=== PATIENT | female | born 2000 | race Caucasian/White ===

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

== ENCOUNTER 2025-01-21 05:32 | Inpatient (IN) ==
[2025-01-21] MEDS: MIDAZOLAM HCL 5 MG/ML 2ML VIAL STA (06:17)
--- NOTE | 2025-01-21 06:43 | Emergency Department Note ---
Impression & Plan UTI (urinary tract infection) Discharge ED Provider Note HPI: History obtained from patient's mother. The patient is a 25-year-old female with history of intermittent explosive disorder, developmental disorder, autism spectrum disorder, IgG deficiency, who presents to the emergency department with her mother over concern for left flank pain, fever/chills, and vomiting. Patient's mother states that her symptoms started yesterday evening. On arrival here to the ED the patient is febrile at 38.1 Celsius and tachycardic in the 160s, her blood pressure stable at 114/76 and she is saturating well on room air. On my examination the patient's heart rate is down trended into the 130s. Patient is anxious appearing but otherwise in no acute physical distress on my initial evaluation. Patient's mother at the bedside states that the patient has an extreme needle phobia and she has required sedation in the past with ketamine for IV placement. ROS: - Per HPI Differential Diagnosis: Sepsis, urinary tract infection, pyelonephritis, kidney stone, small bowel obstruction, acute cholecystitis, acute appendicitis, amongst other potential pathologies. *Outpatient medications and allergy history reviewed. PE: General: Alert, obese, no acute distress HEENT: Normocephalic, trachea midline Eyes: Extraocular eye movement is intact, no scleral erythema Pulmonary: Clear to auscultation bilaterally, no wheezing Cardio: Tachycardic rate with regular rhythm GI: Abdomen is soft to palpation, there is some mild left-sided abdominal tenderness and flank tenderness to palpation : No suprapubic tenderness MSK: No evidence of trauma or malformation of the extremities, no edema Skin: No evidence of rash Neuro: Alert, no focal deficits Psychiatric: Cooperative INDEPENDENT INTERPRETATIONS: monitor car operator: (As interpreted by myself): - An order was placed for continuous cardiac monitoring - Patient was noted to be in sinus rhythm with a rate of 136 EKG: (As interpreted by myself): Rate: 136 Rhythm: Sinus tachycardia Intervals: Within normal limits ST changes: No ST elevation Time: 0552 Chest x-ray: (As interpreted by myself): No acute findings Interventions provided in ED: - IV fluid bolus, IV cefepime, IM Haldol, IM Ativan, IV Tylenol, IV magnesium Medical Decision Making: Patient presented to the emergency department with vital signs and story concerning for possible sepsis. She is tachycardic on arrival and febrile. Patient required IM Haldol and IM Ativan for mild sedation so that IV could be placed. This was done successfully. Lab work was obtained and the patient was placed on computer hardware developer. Patient was given IV fluid resuscitation for sepsis as well as Tylenol. Lab work shows a leukocytosis of 18.3, hemoglobin is normal, platelet count is normal, CMP does not show any evidence of any critical findings. Magnesium is slightly low at 1.4, there is no acute kidney injury, there is a mild transaminitis with AST of 47 and ALT of 75, troponin is negative x 1, procalcitonin is mildly elevated at 1.39, testing is negative, urinalysis is consistent with infection. Blood cultures were drawn and the patient was treated with IV cefepime. Lactic acid was noted to be greater than 5, CT imaging of the abdomen pelvis was obtained with IV contrast that shows evidence of cystitis with left-sided pyelonephritis. On my reassessment the patient is more comfortable appearing, she appears well-perfused, her tachycardia is down trended into the 110s. Blood pressure is stable. I discussed all of the above findings with the patient's mother, she is in agreement for admission. Case was discussed with the on-call admitting midlevel provider for [facility] [place] and the patient was placed for admission to the service of Dr. Ross. Consultants/Discussions held with other healthcare providers: - Hospitalist, Dr. Ross Disposition discussion held by myself with: -Patient and mother * CRITICAL CARE TIME: ( 49 ) minutes - Stabilization of patient with sepsis secondary to urinary tract infection requiring IV fluid resuscitation with greater than 30 cc/kg, administration of broad-spectrum antibiotics, time spent at the bedside, interpretation of diagnostic studies, administration of anxiolytics for panic/anxiety associated with needle phobia, discussion with other healthcare providers and arrangement of admission. Diagnosis: 1. Pyelonephritis, acute, left-sided 2. Leukocytosis, acute 3. Lactic acidosis, acute 4. Urinary tract infection, acute 5. Hypomagnesemia, acute Disposition: Admission Parish Cartwright DO Emergency Medicine Past Med/Surg History Problem List (Updated 01/21/25 @ 12:21 by Parish Cartwright DO) UTI (urinary tract infection) (Acute) Sepsis Pyelonephritis Encounter for pre-operative examination Sinusitis (Acute) Normal physical examination (Acute) Hypersexuality state (Acute) Febrile illness (Acute) Cough (Acute) Agitation requiring sedation protocol (Acute) S/P tonsillectomy (Chronic) IgG deficiency (Chronic) Intermittent explosive disorder (Chronic) Sleep disorder (Chronic) Insulin resistance (Chronic) Anxiety (Chronic) Pervasive developmental disorder (Chronic) Upper respiratory infection (Acute) Medical History Pervasive developmental disorder Impaired gait Family history of reaction to anesthesia History of anesthesia reaction H/O bronchopulmonary dysplasia Sleep disorder Insulin resistance Seasonal allergies Anxiety Communication impairment Depression Autism Needle phobia Surgical History S/P tonsillectomy Social History Smoking Status: Never smoker Second Hand Exposure: No; Do You Dip or Chew Tobacco: No; Hx Alcohol Use: No Hx Substance Use: Yes (medical card) Last Used Substance Other:: nightly Preferred Language: American Communication Ability: Impaired Communication Ability Comment: needs to be present to communicate w/pt. Bed Bug Exterminator Required: No Beliefs That Will Affect Care: None Current Living Situation: Family Feels Safe at Home: Yes Assistive Devices: Glasses Allergies Allergies Allergy/AdvReac Type Severity Reaction Status Date / Time Penicillins Allergy Severe ANAPHYLAXIS Verified 01/21/25 08:52 Sulfa (Sulfonamide Allergy Severe ANAPHYLAXIS Verified 01/21/25 08:52 Antibiotics) adhesive tape Allergy Intermediate Hives Unverified 01/21/25 08:52 Home Meds Home Medications Medication Instructions Recorded Confirmed clonidine HCl 0.1 mg tablet 0.1 mg PO AMHS 06/15/20 01/21/25 lamotrigine 150 mg tablet 300 mg PO QAM 06/15/20 01/21/25 (Lamictal) metformin 500 mg tablet 500 mg PO HS 06/15/20 01/21/25 lorazepam 1 mg tablet 1 mg PO DIRECTED Anxiety 12/16/23 01/21/25 lumateperone 42 mg capsule 42 mg PO HS 12/16/23 01/21/25 (Caplyta) mirtazapine 7.5 mg tablet 7.5 mg PO HS PRN menstrual cycle 12/16/23 01/21/25 trazodone 150 mg tablet 150 mg PO HS 12/16/23 01/21/25 Medical Marijuana 1 dose PO HS 03/06/24 01/21/25 glipizide 5 mg tablet 5 mg PO DAILYBB 01/21/25 01/21/25 melatonin 10 mg chewable tablet 20 mg PO HS 01/21/25 01/21/25 naltrexone 50 mg tablet 25 mg PO QAM 01/21/25 01/21/25 nystatin 100,000 unit/gram topical 1 applic topical BID 01/21/25 01/21/25 cream Results & Data (ED) Vital Signs Vital Signs - 24 hr 01/21/25 05:36 01/21/25 05:43 01/21/25 06:22 Temperature 38.1 C H Temperature Source Temporal Artery Scan Pulse Rate 152 H 162 H Pulse Rate [Apical] Pulse Rhythm [Apical] Pulse Strength [Apical] Respiratory Rate 16 Respiratory Effort / Characteristics Respiratory Depth Normal Respiratory Pattern Blood Pressure 114/76 Blood Pressure [Right Arm] Blood Pressure Mean 88 Blood Pressure Mean [Right Arm] Pulse Oximetry 93 Oxygen Delivery Method Room Air Oxygen Flow Rate Sepsis Recent Fever Within 48 Hours Yes Sepsis New/Unexplained Change in Mental Status No Sepsis Action Taken by Nursing No Action Required 01/21/25 06:47 01/21/25 06:48 01/21/25 06:49 Temperature Temperature Source Pulse Rate 140 H Pulse Rate [Apical] Pulse Rhythm [Apical] Pulse Strength [Apical] Respiratory Rate 25 H Respiratory Effort / Characteristics Non-Labored Respiratory Depth Normal Respiratory Pattern Blood Pressure 112/80 Blood Pressure [Right Arm] Blood Pressure Mean 90 Blood Pressure Mean [Right Arm] Pulse Oximetry 98 97 Oxygen Delivery Method Room Air Room Air Oxygen Flow Rate Sepsis Recent Fever Within 48 Hours Sepsis New/Unexplained Change in Mental Status Sepsis Action Taken by Nursing 01/21/25 07:30 01/21/25 07:33 01/21/25 08:55 Temperature Temperature Source Pulse Rate Pulse Rate [Apical] 129 H 141 H 113 H Pulse Rhythm [Apical] Regular Regular Pulse Strength [Apical] Normal Normal Respiratory Rate 24 16 17 Respiratory Effort / Characteristics Non-Labored Spontaneous Non-Labored Spontaneous Respiratory Depth Normal Normal Respiratory Pattern Regular Regular Blood Pressure Blood Pressure [Right Arm] 121/75 121/75 98/64 L Blood Pressure Mean Blood Pressure Mean [Right Arm] 90 90 75 Pulse Oximetry 91 91 96 Oxygen Delivery Method Room Air Room Air Room Air Oxymask Oxygen Flow Rate 5 Sepsis Recent Fever Within 48 Hours Sepsis New/Unexplained Change in Mental Status Sepsis Action Taken by Nursing 01/21/25 09:00 Temperature Temperature Source Pulse Rate Pulse Rate [Apical] 105 H Pulse Rhythm [Apical] Pulse Strength [Apical] Respiratory Rate 18 Respiratory Effort / Characteristics Respiratory Depth Respiratory Pattern Blood Pressure Blood Pressure [Right Arm] 96/62 L Blood Pressure Mean Blood Pressure Mean [Right Arm] 73 Pulse Oximetry 95 Oxygen Delivery Method Oxymask Oxygen Flow Rate 5 Sepsis Recent Fever Within 48 Hours Sepsis New/Unexplained Change in Mental Status Sepsis Action Taken by Nursing Laboratory Data 01/21/25 07:05 01/21/25 07:05 Lab Results 01/21/25 01/21/25 01/21/25 Range/Units 06:05 07:05 08:20 WBC 18.30 H (4.8-10.8) K/ul RBC 5.05 (4.20-5.40) M/uL Hgb 14.4 (12.0-16.0) g/dl Hct 44.3 (37.0-47.0) % MCV 87.7 (80.0-100.0) fL MCH 28.5 (25.0-34.0) pg MCHC 32.5 (32.0-36.0) g/dL RDW Std Deviation 46.2 (36.4-46.3) fL RDW Coeff of Brandon 14.6 H (11.5-14.5) % Plt Count 316 (130-400) K/uL MPV 10.5 (9.4-12.4) fL Immature Gran % (Auto) 1.0 % Neut % (Auto) 83.6 % Lymph % (Auto) 7.8 % [place] % (Auto) 7.4 % Eos % (Auto) 0.0 % Baso % (Auto) 0.2 % Neut # (Auto) 15.31 H (1.40-6.50) K/uL Lymph # (Auto) 1.42 (1.20-3.40) K/uL [place] # (Auto) 1.35 H (0.11-0.59) K/uL Eos # (Auto) 0.00 (0.00-0.50) K/uL Baso # (Auto) 0.04 (0.00-0.20) K/uL Immature Gran # (Auto) 0.18 (0.01-0.20) K/uL Sodium 139 (136-145) mmol/L Potassium 4.7 (3.5-5.1) mmol/L Chloride 102 (98-107) mmol/L Carbon Dioxide 25 (21-32) mmol/L Anion Gap 12 H (3-11) BUN 7 (6-23) mg/dl Creatinine 0.72 (0.6-1.2) mg/dl Est Cr Clr Drug Dosing 121.5 ml/min eGFR 119.66 BUN/Creatinine Ratio 9.7 L (10-20) Glucose 278 H (70-99(Fasting)) mg/dl Lactate 5.4 H* (0.4-2.0) mmol/L Calcium 9.7 (8.6-10.3) mg/dl Magnesium 1.4 L (1.7-2.4) mg/dl Total Bilirubin 1.2 H (0.2-1.0) mg/dl Direct Bilirubin 0.4 H (0-0.2) mg/dl AST 47 H (13-39) U/L ALT 75 H (7-52) U/L Alkaline Phosphatase 96 (34-104) U/L Troponin I High Sens 8.2 (0-14) pg/ml Total Protein 7.3 (6.0-8.3) gm/dl Albumin 4.4 (3.4-5.0) gm/dl Lipase 17 (11-82) U/L Procalcitonin 1.39 H (0-0.5) ng/ml HCG, Qual Negative (Negative) Urine Color Dark Yellow Urine Appearance Cloudy A (Clear) Urine pH 5.5 (4.5-7.5) Ur Specific [place] 1.041 H (1.000-1.030) Urine Protein 3+ H (Negative) Urine Glucose (UA) 1+ H (Negative) Urine Ketones 1+ H (Negative) Urine Blood 2+ H (Negative) Urine Nitrite Positive A (Negative) Urine Bilirubin Negative (Negative) Urine Urobilinogen Negative (Negative) Ur Leukocyte Esterase 2+ H (Negative) Urine WBC (Auto) >50 H (0-5) /hpf Urine RBC (Auto) 11-20 H (0-2) /hpf U Hyaline Cast (Auto) 0-2 (0-2) /lpf U Epithel Cells (Auto) 0-2 (0-2) /hpf Urine Bacteria (Auto) 4+ H (None Seen) Urine Comment Adenovirus (PCR) Not Detected (NotDetected) B. pertussis DNA (PCR) Not Detected (NotDetected) B.parapertussis DNA PCR Not Detected (NotDetected) C. pneumoniae DNA (PCR) Not Detected (NotDetected) Coronavirus OC43 (PCR) Not Detected (NotDetected) Coronavirus HKU1 (PCR) Not Detected (NotDetected) Coronavirus 229E (PCR) Not Detected (NotDetected) SARS-CoV-2 (PCR) Not Detected (NotDetected) Coronavirus NL63 (PCR) Not Detected (NotDetected) Human Metapneumovir PCR Not Detected (NotDetected) Influenza Type A (PCR) Not Detected (NotDetected) Influenza Type B (PCR) Not Detected (NotDetected) M. pneumoniae (PCR) Not Detected (NotDetected) Parainfluenza 1 (PCR) Not Detected (NotDetected) Parainfluenza 2 (PCR) Not Detected (NotDetected) Parainfluenza 3 (PCR) Not Detected (NotDetected) Parainfluenza 4 (PCR) Not Detected (NotDetected) RSV (PCR) Not Detected (NotDetected) Entero/Rhino (PCR) Not Detected (NotDetected) 01/21/25 Range/Units 08:59 WBC (4.8-10.8) K/ul RBC (4.20-5.40) M/uL Hgb (12.0-16.0) g/dl Hct (37.0-47.0) % MCV (80.0-100.0) fL MCH (25.0-34.0) pg MCHC (32.0-36.0) g/dL RDW Std Deviation (36.4-46.3) fL RDW Coeff of [place] (11.5-14.5) % Plt Count (130-400) K/uL MPV (9.4-12.4) fL Immature Gran % (Auto) % Neut % (Auto) % Lymph % (Auto) % [place] % (Auto) % Eos % (Auto) % Baso % (Auto) % Neut # (Auto) (1.40-6.50) K/uL Lymph # (Auto) (1.20-3.40) K/uL [place] # (Auto) (0.11-0.59) K/uL Eos # (Auto) (0.00-0.50) K/uL Baso # (Auto) (0.00-0.20) K/uL Immature Gran # (Auto) (0.01-0.20) K/uL Sodium (136-145) mmol/L Potassium (3.5-5.1) mmol/L Chloride (98-107) mmol/L Carbon Dioxide (21-32) mmol/L Anion Gap (3-11) BUN (6-23) mg/dl Creatinine (0.6-1.2) mg/dl Est Cr Clr Drug Dosing ml/min eGFR BUN/Creatinine Ratio (10-20) Glucose (70-99(Fasting)) mg/dl Lactate 2.8 H* (0.4-2.0) mmol/L Calcium (8.6-10.3) mg/dl Magnesium (1.7-2.4) mg/dl Total Bilirubin (0.2-1.0) mg/dl Direct Bilirubin (0-0.2) mg/dl AST (13-39) U/L ALT (7-52) U/L Alkaline Phosphatase (34-104) U/L Troponin I High Sens (0-14) pg/ml Total Protein (6.0-8.3) gm/dl Albumin (3.4-5.0) gm/dl Lipase (11-82) U/L Procalcitonin (0-0.5) ng/ml HCG, Qual (Negative) Urine Color Urine Appearance (Clear) Urine pH (4.5-7.5) Ur Specific [place] (1.000-1.030) Urine Protein (Negative) Urine Glucose (UA) (Negative) Urine Ketones (Negative) Urine Blood (Negative) Urine Nitrite (Negative) Urine Bilirubin (Negative) Urine Urobilinogen (Negative) Ur Leukocyte Esterase (Negative) Urine WBC (Auto) (0-5) /hpf Urine RBC (Auto) (0-2) /hpf U Hyaline Cast (Auto) (0-2) /lpf U Epithel Cells (Auto) (0-2) /hpf Urine Bacteria (Auto) (None Seen) Urine Comment Adenovirus (PCR) (NotDetected) B. pertussis DNA (PCR) (NotDetected) B.parapertussis DNA PCR (NotDetected) C. pneumoniae DNA (PCR) (NotDetected) Coronavirus OC43 (PCR) (NotDetected) Coronavirus HKU1 (PCR) (NotDetected) Coronavirus 229E (PCR) (NotDetected) SARS-CoV-2 (PCR) (NotDetected) Coronavirus NL63 (PCR) (NotDetected) Human Metapneumovir PCR (NotDetected) Influenza Type A (PCR) (NotDetected) Influenza Type B (PCR) (NotDetected) M. pneumoniae (PCR) (NotDetected) Parainfluenza 1 (PCR) (NotDetected) Parainfluenza 2 (PCR) (NotDetected) Parainfluenza 3 (PCR) (NotDetected) Parainfluenza 4 (PCR) (NotDetected) RSV (PCR) (NotDetected) Entero/Rhino (PCR) (NotDetected) Administered Medications Lactated Ringer's (Lr) 1,000 mls @ 80 mls/hr IV .[id number] CECY Stop: 01/24/25 10:14 Last Admin: 01/21/25 10:37 Dose: 80 mls/hr Documented By: AMANDA Discontinued Medications Haloperidol Lactate (Haloperidol Lactate 5 Mg/Ml 1 Ml Vial) 10 mg IV NOW STA Stop: 01/21/25 06:40 Last Admin: 01/21/25 06:45 Dose: 10 mg Documented By: [facility] Sodium Chloride (Nss) 1,000 mls @ 999 mls/hr IV .Q1H1M CECY Stop: 01/21/25 07:45 Last Infusion: 01/21/25 10:34 Dose: 0 mls/hr Documented By: Admin: 01/21/25 09:59 Dose: 999 mls/hr Documented By: Infusion: 01/21/25 08:28 Dose: Infused Documented By: Admin: 01/21/25 07:07 Dose: 999 mls/hr Documented By: NANCY Acetaminophen (Ofirmev) 1,000 mg in 100 mls @ 400 mls/hr IV NOW STA Stop: 01/21/25 05:58 Last Infusion: 01/21/25 07:38 Dose: Infused Documented By: Admin: 01/21/25 07:14 Dose: 400 mls/hr Documented By: AMANDA Cefepime HCl (Maxipime 2000mg) 2,000 mg in 20 mls @ 5 mls/min IV NOW STA; Protocol Stop: 01/21/25 07:31 Last Admin: 01/21/25 07:48 Dose: 5 mls/min Documented By: AMANDA Sodium Chloride (Nss) 1,000 mls @ 999 mls/hr IV .Q1H1M ONE Stop: 01/21/25 08:28 Last Infusion: 01/21/25 09:54 Dose: Infused Documented By: Admin: 01/21/25 08:07 Dose: 999 mls/hr Documented By: AMANDA Magnesium Sulfate/Dextrose (Magnesium Sulfate / D5w) 1 gm in 100 mls @ 100 mls/hr IV NOW STA Stop: 01/21/25 08:58 Last Infusion: 01/21/25 09:54 Dose: Infused Documented By: Admin: 01/21/25 08:29 Dose: 100 mls/hr Documented By: AMANDA Ioversol (Optiray 320 100ml) 94 ml IV ONCE ONE Stop: 01/21/25 07:58 Last Admin: 01/21/25 07:57 Dose: 94 ml Documented By: MADISON Lorazepam (Lorazepam 2 Mg/1 Ml Vial) 2 mg IM NOW STA Stop: 01/21/25 06:40 Last Admin: 01/21/25 06:45 Dose: 2 mg Documented By: LORRAINE Midazolam HCl (Midazolam Hcl 5 Mg/Ml 2ml Vial) 4 mg NA NOW STA Stop: 01/21/25 06:08 Last Admin: 01/21/25 06:17 Dose: 4 mg Documented By: NANCY Ondansetron HCl (Ondansetron Inj 2 Mg/Ml 2 Ml Vial) 4 mg IV NOW STA Stop: 01/21/25 05:45 Last Admin: 01/21/25 07:15 Dose: 4 mg Documented By: AMANDA Imaging Data Radiologist's Impression: Chest X-Ray 01/21/25 05:42 EXAM: XR chest 1V portable CLINICAL HISTORY: Sepsis TECHNIQUE: An X-ray image of the chest is obtained in AP projection. COMPARISON: 06/28/2020 FINDINGS: Pulmonary Parenchyma: Lungs are clear bilaterally. No evidence of consolidation, collapse, or focal opacities. No pulmonary nodules are identified. No evidence of pleural effusion or pleural thickening. Heart and Mediastinum: Heart size and shape are normal. No mediastinal widening or masses. No hilar or mediastinal lymphadenopathy. Bony Thorax: Bony thorax appears intact without fractures or deformities. Soft Tissues: Soft tissues overlying the chest wall are unremarkable. IMPRESSION: 1. No acute cardiopulmonary abnormalities are identified. 2. No significant interval changes. Electronically signed by Paul Pace 01-21-2025 06:58 AM KUB X-Ray 01/21/25 05:46 EXAM: XR KUB/Abdomen 1 view CLINICAL HISTORY: fever, n/v TECHNIQUE: X-ray images of the abdomen were obtained in frontal positions. COMPARISON: CT study dated 06/17/2017 reviewed FINDINGS: Gas Pattern: Scattered gas distended bowel loops, non-specific pattern No evidence of bowel obstruction. Soft Tissues: Soft tissues of the abdomen appear normal without evidence of masses or calcifications. Liver, spleen, and kidneys are of normal size and position. IMPRESSION: 1. Scattered gas distended bowel loops, non-specific pattern 2. No evidence of bowel obstruction. Electronically signed by Paul Pace 01-21-2025 07:00 AM Abdomen/Pelvis CT 01/21/25 07:[address] WITH IV CONTRAST CT DOSE: 1597.56 mGy.cm HISTORY: Acute left-sided flank pain L flank pain, vomiting TECHNIQUE: Multiaxial CT images of the abdomen and pelvis were performed following the IV administration of 94 cc of Optiray, A dose lowering technique was utilized adhering to the principles of ALARA. COMPARISON STUDY: 06/17/2017 FINDINGS: Cystic changes in the lung bases redemonstrated. No pneumatosis or pneumoperitoneum. The spleen is enlarged measuring 14 cm. Hepatic steatosis. The liver measures 23 cm in length. Patency of the hepatic and portal veins. Unremarkable pancreas and adrenal glands. Unremarkable right kidney. There is asymmetric left-sided perinephric stranding with areas of heterogeneous left renal enhancement and urothelial thickening. No urolithiasis or hydronephrosis. Mild urinary bladder wall thickening with partial distention. Unremarkable uterus. Bilateral ovarian follicles with 3 cm right ovarian cyst. Aorta and IVC are unremarkable. No bowel obstruction or bowel wall thickening. Normal appendix. Unremarkable osseous structures. IMPRESSION: 1. Findings suggestive of cystitis with ascending left-sided infection and left- sided pyelonephritis. 2. No urolithiasis or hydronephrosis. 3. Hepatosplenomegaly with hepatic steatosis. 4. 3 cm right ovarian cyst. 5. Cystic pulmonary disease versus emphysema redemonstrated. ACT 112: Negative or not required by law. The above report was generated using voice recognition software. It may contain grammatical, syntax or spelling errors. Electronically signed by: Leo Amezcua M.D. 01/21/2025 8:18 AM Discharge Plan Visit Data Chief Complaint: Vomiting Stated Complaint: FEVER, VOMIT ED Provider: Parish Cartwright Discharge Problem: UTI (urinary tract infection) Patient Disposition: Admitted As Inpatient Condition: Fair Discharge Instructions Interventions: ED Discharge Assessment Last Done: 01/21/25 11:40
[2025-01-21] MEDS: HALOPERIDOL LACTATE 5 MG/ML 1 ML VIAL IV STA (06:45)
--- NOTE | 2025-01-21 06:59 | XRay Report ---
EXAM: XR chest 1V portable CLINICAL HISTORY: Sepsis TECHNIQUE: An X-ray image of the chest is obtained in AP projection. COMPARISON: 06/28/2020 FINDINGS: Pulmonary Parenchyma: Lungs are clear bilaterally. No evidence of consolidation, collapse, or focal opacities. No pulmonary nodules are identified. No evidence of pleural effusion or pleural thickening. Heart and Mediastinum: Heart size and shape are normal. No mediastinal widening or masses. No hilar or mediastinal lymphadenopathy. Bony Thorax: Bony thorax appears intact without fractures or deformities. Soft Tissues: Soft tissues overlying the chest wall are unremarkable. IMPRESSION: 1. No acute cardiopulmonary abnormalities are identified. 2. No significant interval changes. Electronically signed by Paul Pace 01-21-2025 06:58 AM
--- NOTE | 2025-01-21 07:02 | XRay Report ---
EXAM: XR KUB/Abdomen 1 view CLINICAL HISTORY: fever, n/v TECHNIQUE: X-ray images of the abdomen were obtained in frontal positions. COMPARISON: CT study dated 06/17/2017 reviewed FINDINGS: Gas Pattern: Scattered gas distended bowel loops, non-specific pattern No evidence of bowel obstruction. Soft Tissues: Soft tissues of the abdomen appear normal without evidence of masses or calcifications. Liver, spleen, and kidneys are of normal size and position. IMPRESSION: 1. Scattered gas distended bowel loops, non-specific pattern 2. No evidence of bowel obstruction. Electronically signed by Paul Pace 01-21-2025 07:00 AM
[2025-01-21 07:06] LABS: Chlamydia pneumoniae PCR Not Detected (NotDetected); Coronavirus 229E PCR Not Detected (NotDetected); Coronavirus CoV-2 (COVID19)PCR Not Detected (NotDetected); Coronavirus HKU1 PCR Not Detected (NotDetected); Coronavirus NL63 PCR Not Detected (NotDetected); Coronavirus OC43PCR Not Detected (NotDetected); Human Metapneumovirus PCR Not Detected (NotDetected); Parainfluenza Virus 1 PCR Not Detected (NotDetected); Parainfluenza Virus 2 PCR Not Detected (NotDetected); Parainfluenza Virus 3 PCR Not Detected (NotDetected); Parainfluenza Virus 4 PCR Not Detected (NotDetected); Respiratory Syncytial VirusPCR Not Detected (NotDetected); Rhinovirus/Enterovirus PCR Not Detected (NotDetected)
[2025-01-21] MEDS: SODIUM CHLORIDE 0.9% 1,000 ML IV SCH (07:07)
[2025-01-21] MEDS: ACETAMINOPHEN 1,000 MG/100 ML VIAL IV STA (07:14)
[2025-01-21] MEDS: ONDANSETRON INJ 2 MG/ML 2 ML VIAL IV STA (07:15)
[2025-01-21 07:21] LABS: Hematocrit (blood only) 44.3 % (37.0-47.0); Hemoglobin 14.4 g/dl (12.0-16.0); Immature Granulocytes # (auto) 0.18 K/uL (0.01-0.20); Immature Granulocytes % (auto) 1.0 %; Mean Corpuscular Hemoglobin 28.5 pg (25.0-34.0); Mean Corpuscular Volume 87.7 fL (80.0-100.0); Platelet Count 316 K/uL (130-400); RDW Standard Deviation 46.2 fL (36.4-46.3); Red Blood Count 5.05 M/uL (4.20-5.40); White Blood Count 18.30 K/ul (4.8-10.8)
[2025-01-21 07:38] LABS: Alanine Aminotransferase 75.0 U/L (7-52); Alkaline Phosphatase 96.0 U/L (34-104); Anion Gap 12.0 (3-11); Bilirubin,Total 1.2 mg/dl (0.2-1.0); Blood Urea Nitrogen 7.0 mg/dl (6-23); Calcium 9.7 mg/dl (8.6-10.3); Carbon Dioxide 25.0 mmol/L (21-32); Chloride 102.0 mmol/L (98-107); Creatinine Clr Calc Pharmacy 121.5 ml/min; Glucose 278.0 mg/dl (70-99(Fasting)); Lipase 17.0 U/L (11-82); Magnesium 1.4 mg/dl (1.7-2.4); Potassium 4.7 mmol/L (3.5-5.1); Sodium 139.0 mmol/L (136-145); Total Protein 7.3 gm/dl (6.0-8.3)
[2025-01-21] MEDS: CEFEPIME 2000MG 2,000 MG/20 ML SYR IV STA (07:48)
[2025-01-21 07:56] LABS: Pregnancy Test, Serum Negative (Negative)
[2025-01-21] MEDS: OPTIRAY 320 100ml IV ONE (07:57)
[2025-01-21] MEDS: SODIUM CHLORIDE 0.9% 1,000 ML IV ONE (08:07)
--- NOTE | 2025-01-21 08:19 | CT Scan Report ---
ABDOMEN AND PELVIS CT WITH IV CONTRAST CT DOSE: 1597.56 mGy.cm HISTORY: Acute left-sided flank pain L flank pain, vomiting TECHNIQUE: Multiaxial CT images of the abdomen and pelvis were performed following the IV administrat ion of 94 cc of Optiray, A dose lowering technique was utilized adhering to the principles of ALARA. COMPARISON STUDY: 06/17/2017 FINDINGS: Cystic changes in the lung bases redemonstrated. No pneumatosis or pneumoperitoneum. The sp michelle is enlarged measuring 14 cm. Hepatic steatosis. The liver measures 23 cm in length. Patency of t he hepatic and portal veins. Unremarkable pancreas and adrenal glands. Unremarkable right kidney. There is asymmetric left-sided perinephric stranding with areas of heterog eneous left renal enhancement and urothelial thickening. No urolithiasis or hydronephrosis. Mild urin cristino bladder wall thickening with partial distention. Unremarkable uterus. Bilateral ovarian follicles with 3 cm right ovarian cyst. Aorta and IVC are unremarkable. No bowel obstruction or bowel wall thi ckening. Normal appendix. Unremarkable osseous structures. IMPRESSION: 1. Findings suggestive of cystitis with ascending left-sided infection and left-sided pyelonephritis. 2. No urolithiasis or hydronephrosis. 3. Hepatosplenomegaly with hepatic steatosis. 4. 3 cm right ovarian cyst. 5. Cystic pulmonary disease versus emphysema redemonstrated. ACT 112: Negative or not required by law. The above report was generated using voice recognition software. It may contain grammatical, syntax o r spelling errors. Electronically signed by: Leo Amezcua M.D. 01/21/2025 8:18 AM
[2025-01-21] MEDS: MAGNESIUM SULFATE / D5W 1 GM/100 ML BAG IV STA (08:29)
[2025-01-21 08:43] LABS: Appearance Urine Cloudy (Clear); Bacteria Urine Automated 4+ (None Seen); Cast Urine Automated 0-2 /lpf (0-2); Epithelial Cell Urine Auto 0-2 /hpf (0-2); Glucose Urine UA 1+ (Negative); WBC Urine Automated >50 /hpf (0-5)
[2025-01-21] MEDS ORDERED: GLUCOSE 10 TAB/TUBE PO PRN (09:16)
[2025-01-21] MEDS ORDERED: DEXTROSE 50% 50 ML SYRINGE IV PRN (09:16)
[2025-01-21] MEDS ORDERED: GLUCOSE 40% GEL 15 GM TUBE PO PRN (09:16)
[2025-01-21] MEDS ORDERED: GLUCAGON FOR INJ 1 MG VIAL SQ PRN (09:16)
[2025-01-21] MEDS ORDERED: CARBOHYDRATES FOR HYPOGLYCEMIA PO PRN (09:16)
--- NOTE | 2025-01-21 10:10 | History & Physical Report ---
Date of Service January 21, 2025 Assessment & Plan (1) Intermittent explosive disorder: (2) Sleep disorder: (3) Anxiety: (4) Depression: (5) Autism: (6) Pyelonephritis: (7) Sepsis: Plan The patient is a 25-year-old female with a history of autism who presents to the ED on 01/21/2025 with complaints of nausea/vomiting/fever/chills x 24 hours found to have pyelonephritis and sepsis Sepsis Pyelonephritis Leukocytosis, fever, tachycardia, lactic acidosis and positive urinalysis all consistent with sepsis Tachycardia improved with IV fluids, continue to trend lactic acid, blood cultures and urine cultures pending Continue IV cefepime, history of penicillin allergy, has tolerated cefepime in the past, continue IV fluids CT A/P with left-sided pyelonephritis, no evidence of obstructing kidney stone Acute hypoxia: On 5 L currently, received Haldol and Ativan in ER for agitation No increased work of breathing, likely will resolve once sedation wears off Chest x-ray was negative Hx autism/explosive disorder/anxiety: Continue home meds including clonidine, Lamictal, lorazepam, naltrexone, trazodone Hx DM2: Hold glipizide/metformin, SSI/4 times daily BGM Patient has a needle phobia, may need to slowly reintroduce oral agents if not tolerant of insulin Recheck A1c A total of 60 minutes was spent on chart review/reviewing diagnostic data/facilitating plan of care/discussion with consultants Full code DVT prophylaxis: SCDs History of Present Illness Chief Complaint: Flank pain, chills Primary Care Provider: Hui Robert MD The patient is a 25-year-old female with a past medical history of explosive disorder, developmental disorder, autism spectrum disorder level 3, IgG deficiency, DM2, anxiety who presents to the ED on 01/21/2025 after she was broug ht in from home with her mother for concern of left flank pain, vomiting, and chills at home x 24 hours. The patient's mother is at bedside and reports that her symptoms started last night. The patient began complaining of pain and she believed this was originally from gas. After the pain did not improve, the patient had chills overnight and had about 5 episodes of vomiting this morning. She was brought to the ER after this. When the patient arrived to the ED, the patient was febrile at 38.1 with elevated heart rates in the 160s. Her blood pressure remained stable. On exam, the patient had received Versed and Haldol, she is sedated but arousable. At this time, requiring 5 L of oxygen due to sedation. Blood pressures were slightly low in the 90s. But heart rate has now improved in the 80s. The patient does not appear in any apparent distress. Labs are remarkable for WBC 18, anion gap 12, glucose 278, magnesium 1.4, total bili 1.2, AST 47, ALT 75, procalcitonin 1.39, lactic acid 5.4 Urinalysis grossly positive Respiratory viral panel negative Chest x-ray negative KUB showed scattered gas distended bowel loops with no evidence of bowel obstruction Abdomen/pelvis CT showed: 1. Findings suggestive of cystitis with ascending left-sided infection and left- sided pyelonephritis. 2. No urolithiasis or hydronephrosis. 3. Hepatosplenomegaly with hepatic steatosis. 4. 3 cm right ovarian cyst. 5. Cystic pulmonary disease versus emphysema redemonstrated. The patient received IV cefepime and IV fluids in the ER. She will be admitted for urosepsis Allergies Allergy/AdvReac Type Severity Reaction Status Date / Time Penicillins Allergy Severe ANAPHYLAXIS Verified 01/21/25 08:52 Sulfa (Sulfonamide Allergy Severe ANAPHYLAXIS Verified 01/21/25 08:52 Antibiotics) adhesive tape Allergy Intermediate Hives Unverified 01/21/25 08:52 Home Medications Medication Instructions Recorded Confirmed Type clonidine HCl 0.1 mg tablet 0.1 mg PO AMHS 06/15/20 01/21/25 History lamotrigine 150 mg tablet 300 mg PO QAM 06/15/20 01/21/25 History (Lamictal) metformin 500 mg tablet 500 mg PO HS 06/15/20 01/21/25 History lorazepam 1 mg tablet 1 mg PO DIRECTED Anxiety 12/16/23 01/21/25 History lumateperone 42 mg capsule 42 mg PO HS 12/16/23 01/21/25 History (Caplyta) mirtazapine 7.5 mg tablet 7.5 mg PO HS PRN menstrual cycle 12/16/23 01/21/25 History trazodone 150 mg tablet 150 mg PO HS 12/16/23 01/21/25 History Medical Marijuana 1 dose PO HS 03/06/24 01/21/25 History glipizide 5 mg tablet 5 mg PO DAILYBB 01/21/25 01/21/25 History melatonin 10 mg chewable tablet 20 mg PO HS 01/21/25 01/21/25 History naltrexone 50 mg tablet 25 mg PO QAM 01/21/25 01/21/25 History nystatin 100,000 unit/gram topical 1 applic topical BID 01/21/25 01/21/25 History cream Past Med/Surg History Problem List (Updated 01/21/25 @ 12:21 by Parish Cartwright, DO) UTI (urinary tract infection) (Acute) Sepsis Pyelonephritis Encounter for pre-operative examination Sinusitis (Acute) Normal physical examination (Acute) Hypersexuality state (Acute) Febrile illness (Acute) Cough (Acute) Agitation requiring sedation protocol (Acute) S/P tonsillectomy (Chronic) IgG deficiency (Chronic) Intermittent explosive disorder (Chronic) Sleep disorder (Chronic) Insulin resistance (Chronic) Anxiety (Chronic) Pervasive developmental disorder (Chronic) Upper respiratory infection (Acute) Medical History Pervasive developmental disorder Impaired gait Family history of reaction to anesthesia History of anesthesia reaction H/O bronchopulmonary dysplasia Sleep disorder Insulin resistance Seasonal allergies Anxiety Communication impairment Depression Autism Needle phobia Surgical History S/P tonsillectomy Social History Smoking Status: Never smoker Second Hand Exposure: No; Do You Dip or Chew Tobacco: No; Hx Alcohol Use: No Hx Substance Use: Yes (medical card) Last Used Substance Other:: nightly Preferred Language: Armenian Communication Ability: Impaired Communication Ability Comment: needs to be present to communicate w/pt. Director Translational Required: No Beliefs That Will Affect Care: None Current Living Situation: Family Feels Safe at Home: Yes Assistive Devices: Glasses Review of Systems Review of Systems: All systems reviewed & are unremarkable except as noted in HPI & below Physical Exam Constitutional: WD/WN, vitals as above not in distress Eyes: PERRL, conjunctivae normal, anicteric sclerae ENMT: external ear and nose normal, oropharynx normal Neck: trachea midline, no thyromegaly Respiratory: normal respiratory effort, lungs clear to auscultation Cardiovascular: RRR, no murmur, no edema Gastrointestinal (Abdomen): normal bowel sounds, soft, nontender, no hepatosplenomegaly (Left-sided abdominal tenderness, no guarding) Musculoskeletal: no cyanosis or clubbing, extremities motor strength 5/5 Skin: no rashes, warm and dry Neurologic: PERRL, EOMI, accommodation nl, no face palsy, no dysarthria Lymphatic: no cervical or axillary lymphadenopathy Results & Data Results & Data Vital Signs (Past 12 Hours) Vital Signs Temp Pulse Pulse Resp BP BP Pulse Ox 01/21/25 09:00 105 H 18 96/62 L 95 01/21/25 08:55 113 H 17 98/64 L 96 01/21/25 07:33 141 H 16 121/75 91 01/21/25 07:30 129 H 24 121/75 91 01/21/25 06:49 97 01/21/25 06:47 140 H 25 H 112/80 98 01/21/25 06:22 162 H 01/21/25 05:36 38.1 C H 152 H 16 114/76 93 O2 Del Method O2 Flow Rate 01/21/25 09:00 Oxymask 5 01/21/25 08:55 Room Air, Oxymask 5 01/21/25 07:33 Room Air 01/21/25 07:30 Room Air 01/21/25 06:49 Room Air 01/21/25 06:47 Room Air 01/21/25 06:22 01/21/25 05:36 Room Air Diagnostic Findings Laboratory Results WBC 18.30 K/ul (4.8-10.8) H 01/21/25 07:05 RBC 5.05 M/uL (4.20-5.40) 01/21/25 07:05 Hgb 14.4 g/dl (12.0-16.0) 01/21/25 07:05 Hct 44.3 % (37.0-47.0) 01/21/25 07:05 MCV 87.7 fL (80.0-100.0) 01/21/25 07:05 MCH 28.5 pg (25.0-34.0) 01/21/25 07:05 MCHC 32.5 g/dL (32.0-36.0) 01/21/25 07:05 RDW Std Deviation 46.2 fL (36.4-46.3) 01/21/25 07:05 RDW Coeff of [place] 14.6 % (11.5-14.5) H 01/21/25 07:05 Plt Count 316 K/uL (130-400) 01/21/25 07:05 MPV 10.5 fL (9.4-12.4) 01/21/25 07:05 Immature Gran % (Auto) 1.0 % 01/21/25 07:05 Neut % (Auto) 83.6 % 01/21/25 07:05 Lymph % (Auto) 7.8 % 01/21/25 07:05 [place] % (Auto) 7.4 % 01/21/25 07:05 Eos % (Auto) 0.0 % 01/21/25 07:05 Baso % (Auto) 0.2 % 01/21/25 07:05 Neut # (Auto) 15.31 K/uL (1.40-6.50) H 01/21/25 07:05 Lymph # (Auto) 1.42 K/uL (1.20-3.40) 01/21/25 07:05 [place] # (Auto) 1.35 K/uL (0.11-0.59) H 01/21/25 07:05 Eos # (Auto) 0.00 K/uL (0.00-0.50) 01/21/25 07:05 Baso # (Auto) 0.04 K/uL (0.00-0.20) 01/21/25 07:05 Immature Gran # (Auto) 0.18 K/uL (0.01-0.20) 01/21/25 07:05 Sodium 139 mmol/L (136-145) 01/21/25 07:05 Potassium 4.7 mmol/L (3.5-5.1) 01/21/25 07:05 Chloride 102 mmol/L (98-107) 01/21/25 07:05 Carbon Dioxide 25 mmol/L (21-32) 01/21/25 07:05 Anion Gap 12 (3-11) H 01/21/25 07:05 BUN 7 mg/dl (6-23) 01/21/25 07:05 Creatinine 0.72 mg/dl (0.6-1.2) 01/21/25 07:05 Est Cr Clr Drug Dosing 121.5 ml/min 01/21/25 07:05 eGFR 119.66 01/21/25 07:05 BUN/Creatinine Ratio 9.7 (10-20) L 01/21/25 07:05 Glucose 278 mg/dl (70-99(Fasting)) H 01/21/25 07:05 POC Glucose 272 mg/dl (70-99) H 01/21/25 10:03 Lactate 5.4 mmol/L (0.4-2.0) H* 01/21/25 07:05 Calcium 9.7 mg/dl (8.6-10.3) 01/21/25 07:05 Magnesium 1.4 mg/dl (1.7-2.4) L 01/21/25 07:05 Total Bilirubin 1.2 mg/dl (0.2-1.0) H 01/21/25 07:05 Direct Bilirubin 0.4 mg/dl (0-0.2) H 01/21/25 07:05 AST 47 U/L (13-39) H 01/21/25 07:05 ALT 75 U/L (7-52) H 01/21/25 07:05 Alkaline Phosphatase 96 U/L (34-104) 01/21/25 07:05 Troponin I High Sens 8.2 pg/ml (0-14) 01/21/25 07:05 Total Protein 7.3 gm/dl (6.0-8.3) 01/21/25 07:05 Albumin 4.4 gm/dl (3.4-5.0) 01/21/25 07:05 Lipase 17 U/L (11-82) 01/21/25 07:05 Procalcitonin 1.39 ng/ml (0-0.5) H 01/21/25 07:05 HCG, Qual Negative (Negative) 01/21/25 07:05 Urine Color Dark Yellow 01/21/25 08:20 Urine Appearance Cloudy (Clear) A 01/21/25 08:20 Urine pH 5.5 (4.5-7.5) 01/21/25 08:20 Ur Specific [place] 1.041 (1.000-1.030) H 01/21/25 08:20 Urine Protein 3+ (Negative) H 01/21/25 08:20 Urine Glucose (UA) 1+ (Negative) H 01/21/25 08:20 Urine Ketones 1+ (Negative) H 01/21/25 08:20 Urine Blood 2+ (Negative) H 01/21/25 08:20 Urine Nitrite Positive (Negative) A 01/21/25 08:20 Urine Bilirubin Negative (Negative) 01/21/25 08:20 Urine Urobilinogen Negative (Negative) 01/21/25 08:20 Ur Leukocyte Esterase 2+ (Negative) H 01/21/25 08:20 Urine WBC (Auto) >50 /hpf (0-5) H 01/21/25 08:20 Urine RBC (Auto) 11-20 /hpf (0-2) H 01/21/25 08:20 U Hyaline Cast (Auto) 0-2 /lpf (0-2) 01/21/25 08:20 U Epithel Cells (Auto) 0-2 /hpf (0-2) 01/21/25 08:20 Urine Bacteria (Auto) 4+ (None Seen) H 01/21/25 08:20 Urine Comment 01/21/25 08:20 Adenovirus (PCR) Not Detected (NotDetected) 01/21/25 06:05 B. pertussis DNA (PCR) Not Detected (NotDetected) 01/21/25 06:05 B.parapertussis DNA PCR Not Detected (NotDetected) 01/21/25 06:05 C. pneumoniae DNA (PCR) Not Detected (NotDetected) 01/21/25 06:05 Coronavirus OC43 (PCR) Not Detected (NotDetected) 01/21/25 06:05 Coronavirus HKU1 (PCR) Not Detected (NotDetected) 01/21/25 06:05 Coronavirus 229E (PCR) Not Detected (NotDetected) 01/21/25 06:05 SARS-CoV-2 (PCR) Not Detected (NotDetected) 01/21/25 06:05 Coronavirus NL63 (PCR) Not Detected (NotDetected) 01/21/25 06:05 Human Metapneumovir PCR Not Detected (NotDetected) 01/21/25 06:05 Influenza Type A (PCR) Not Detected (NotDetected) 01/21/25 06:05 Influenza Type B (PCR) Not Detected (NotDetected) 01/21/25 06:05 M. pneumoniae (PCR) Not Detected (NotDetected) 01/21/25 06:05 Parainfluenza 1 (PCR) Not Detected (NotDetected) 01/21/25 06:05 Parainfluenza 2 (PCR) Not Detected (NotDetected) 01/21/25 06:05 Parainfluenza 3 (PCR) Not Detected (NotDetected) 01/21/25 06:05 Parainfluenza 4 (PCR) Not Detected (NotDetected) 01/21/25 06:05 RSV (PCR) Not Detected (NotDetected) 01/21/25 06:05 Entero/Rhino (PCR) Not Detected (NotDetected) 01/21/25 06:05 Impressions Chest X-Ray 01/21/25 05:42 EXAM: XR chest 1V portable CLINICAL HISTORY: Sepsis TECHNIQUE: An X-ray image of the chest is obtained in AP projection. COMPARISON: 06/28/2020 FINDINGS: Pulmonary Parenchyma: Lungs are clear bilaterally. No evidence of consolidation, collapse, or focal opacities. No pulmonary nodules are identified. No evidence of pleural effusion or pleural thickening. Heart and Mediastinum: Heart size and shape are normal. No mediastinal widening or masses. No hilar or mediastinal lymphadenopathy. Bony Thorax: Bony thorax appears intact without fractures or deformities. Soft Tissues: Soft tissues overlying the chest wall are unremarkable. IMPRESSION: 1. No acute cardiopulmonary abnormalities are identified. 2. No significant interval changes. Electronically signed by Paul Pace 01-21-2025 06:58 AM KUB X-Ray 01/21/25 05:46 EXAM: XR KUB/Abdomen 1 view CLINICAL HISTORY: fever, n/v TECHNIQUE: X-ray images of the abdomen were obtained in frontal positions. COMPARISON: CT study dated 06/17/2017 reviewed FINDINGS: Gas Pattern: Scattered gas distended bowel loops, non-specific pattern No evidence of bowel obstruction. Soft Tissues: Soft tissues of the abdomen appear normal without evidence of masses or calcifications. Liver, spleen, and kidneys are of normal size and position. IMPRESSION: 1. Scattered gas distended bowel loops, non-specific pattern 2. No evidence of bowel obstruction. Electronically signed by Paul Pace 01-21-2025 07:00 AM Abdomen/Pelvis CT 01/21/25 07:[address] WITH IV CONTRAST CT DOSE: 1597.56 mGy.cm HISTORY: Acute left-sided flank pain L flank pain, vomiting TECHNIQUE: Multiaxial CT images of the abdomen and pelvis were performed following the IV administration of 94 cc of Optiray, A dose lowering technique was utilized adhering to the principles of ALARA. COMPARISON STUDY: 06/17/2017 FINDINGS: Cystic changes in the lung bases redemonstrated. No pneumatosis or pneumoperitoneum. The spleen is enlarged measuring 14 cm. Hepatic steatosis. The liver measures 23 cm in length. Patency of the hepatic and portal veins. Unremarkable pancreas and adrenal glands. Unremarkable right kidney. There is asymmetric left-sided perinephric stranding with areas of heterogeneous left renal enhancement and urothelial thickening. No urolithiasis or hydronephrosis. Mild urinary bladder wall thickening with partial distention. Unremarkable uterus. Bilateral ovarian follicles with 3 cm right ovarian cyst. Aorta and IVC are unremarkable. No bowel obstruction or bowel wall thickening. Normal appendix. Unremarkable osseous structures. IMPRESSION: 1. Findings suggestive of cystitis with ascending left-sided infection and left- sided pyelonephritis. 2. No urolithiasis or hydronephrosis. 3. Hepatosplenomegaly with hepatic steatosis. 4. 3 cm right ovarian cyst. 5. Cystic pulmonary disease versus emphysema redemonstrated. ACT 112: Negative or not required by law. The above report was generated using voice recognition software. It may contain grammatical, syntax or spelling errors. Electronically signed by: Leo Amezcua M.D. 01/21/2025 8:18 AM Supervising Physician Co-Signing Physician Notes Attending Addendum: Case reviewed with the advanced practitioner. I have personally performed a history and physical examination on the patient. I have reviewed the advanced practitioner's documentation on the date of service referenced in note, and I agree with, and take responsibility for the plan of care. please refer to her notes for full details patient seen and examined, records reviewed by myself as well on exam, patient seen with her mother at bedside throughout whole encounter patient seems anxious, asking when she can go home, reassured reports L sided abdominal discomfort and L sided back pain no chest pain, dyspnea, palpitations, dizziness no other symptoms VS noted and reviewed oriented x 3, not in distress, speaks in sentences with no effort nor accessory muscle use, appears anxious normal rate, regular rhythm, no murmurs clear breath sounds bilaterally non distended, soft, nontender (+) L CVA tenderness no bipedal edema, erythema, warmth no gross focal neuro deficits all labs, imaging noted and reviewed ASSESSMENT AND PLAN> SEPSIS, SECONDARY TO PYELONEPHRITIS, LEFT Lactic acid trending down ff up urine and blood cultures IV Cefepime, IV fluids HYPOXIA dry on clinical exam clear breath sounds CXR no pneumonia, pleural effusion likely from hypoventilation, sedation incentive spirometer 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 Denis Ross MD
[2025-01-21] MEDS: LACTATED RINGER'S 1,000 ML IV SCH (10:37)
[2025-01-21] MEDS: INSULIN ASPART PER UNIT CHARGE SC SCH (12:55)
[2025-01-21] MEDS: KETOROLAC TROMETHAMINE 15 MG/ML VIAL IV PRN (15:17)
[2025-01-21 15:23] LABS: Base Excess VBG -3.2 mEq/L; HCO3 VBG 23 mmol/L; Oxygen Saturation VBG 88.7 %; PCO2 VBG 43 mmHg (38-50); PO2 VBG 57 mmHg; pH VBG 7.33 (7.36-7.41)
[2025-01-21] MEDS: LACTATED RINGER'S 500 ML IV ONE (15:32)
[2025-01-21] MEDS: glipiZIDE 5 MG TAB PO SCH (15:33)
--- NOTE | 2025-01-21 15:33 | XRay Report ---
XR chest 1V portable HISTORY: 25 years-old Female increasing o2 needs acute hypoxia COMPARISON: 01/21/2025 TECHNIQUE: AP view of the chest FINDINGS: Cardiomediastinal and hilar silhouettes are unchanged. Bronchovascular crowding with interstitial coa rsening. Hypoinflation. No pneumothorax, large pleural effusion or overt pulmonary edema. Bones appea r grossly intact. IMPRESSION: Limited study secondary to hypoinflation with bronchovascular crowding and probable atele ctasis. ACT 112: Negative or not required by law. The above report was generated using voice recognition software. It may contain grammatical, syntax o r spelling errors. Electronically signed by: Leo Amezcua M.D. 01/21/2025 3:31 PM
--- NOTE | 2025-01-21 17:58 | Electrocardiogram Report ---
Test Reason : Blood Pressure : */* mmHG Vent. Rate : 136 BPM Atrial Rate : 136 BPM P-R Int : 122 ms QRS Dur : 62 ms QT Int : 316 ms P-R-T Axes : 43 70 58 degrees QTcB Int : 475 ms Sinus tachycardia Nonspecific ST abnormality Abnormal ECG No previous ECGs available Confirmed by Estuardo Dickinson ([id number]) on 01/21/2025 5:58:44 PM Referred By: Confirmed By: Estuardo Dickinson
[2025-01-21] MEDS: HEPARIN 25000 UNIT/500 ML D5W 25,000 UNITS/500 ML BAG IV SCH (18:26)
[2025-01-21] MEDS: Heparin IV Adult Wt-Based Standard *NO* INITIAL Bolus Protocol IV STA (18:27)
--- NOTE | 2025-01-21 18:35 | Ultrasound Report ---
Clinical History: Elevated d-dimer Technique: Venous ultrasound evaluation was performed utilizing grayscale, color Doppler and wave form evaluation. Images were also obtained with and without compression Findings: The bilateral common femoral, superficial femoral, popliteal, and visualized calf veins demonstrate normal anechoic lumens with full compressibility. Normal flow is seen on color Doppler images. Expected waveforms were produced with augmentation maneuvers Impression: No evidence of deep venous thrombosis ACT 112: Positive. There are findings on this exam that require communication between the performing entity and the patient following Patient Test Result Information Act ([place] ACT 112) guidelines. Electronically signed by Lorenzo Hallman 01-21-2025 6:34 PM
[2025-01-21] MEDS: CEFEPIME 2000MG 2,000 MG/20 ML SYR IV SCH (21:47)
[2025-01-21 21:54] LABS: Base Excess VBG -1.5 mEq/L; HCO3 VBG 24 mmol/L; Oxygen Saturation VBG 93.2 %; PCO2 VBG 41 mmHg (38-50); PO2 VBG 62 mmHg; pH VBG 7.37 (7.36-7.41)
[2025-01-21] MEDS: NYSTATIN CR 15 GM TUBE EXT SCH (22:01)
[2025-01-21] MEDS: LORazepam 1 MG TAB PO SCH (22:01)
[2025-01-21] MEDS: MAGNESIUM SULFATE / D5W 1 GM/100 ML BAG IV SCH (23:08)
[2025-01-22 01:35] LABS: ANTI-Xa, UFH(UnfractionatedHep 0.18 IU/ml (0.3-0.7)
[2025-01-22] MEDS: ACETAMINOPHEN 1,000 MG/100 ML VIAL IV STA (03:36)
[2025-01-22] MEDS: HEPARIN SOD (PORCINE) 1000 UNIT/ML IV ONE (03:50)
[2025-01-22] MEDS: NALTREXONE HCL 50 MG TAB PO SCH (09:18)
[2025-01-22] MEDS: lamoTRIgine 100 MG TAB PO SCH (09:18)
[2025-01-22] MEDS: ACETAMINOPHEN 325 MG TAB PO PRN (09:18)
[2025-01-22] MEDS: LORazepam 1 MG TAB PO PRN (10:15)
[2025-01-22 10:33] LABS: Hematocrit (blood only) 32.1 % (37.0-47.0); Hemoglobin 10.0 g/dl (12.0-16.0); Immature Granulocytes # (auto) 0.07 K/uL (0.01-0.20); Immature Granulocytes % (auto) 0.6 %; Mean Corpuscular Hemoglobin 27.9 pg (25.0-34.0); Mean Corpuscular Volume 89.4 fL (80.0-100.0); Platelet Count 196 K/uL (130-400); RDW Standard Deviation 49.2 fL (36.4-46.3); Red Blood Count 3.59 M/uL (4.20-5.40); White Blood Count 11.05 K/ul (4.8-10.8)
[2025-01-22 10:56] LABS: Alanine Aminotransferase 41.0 U/L (7-52); Albumin Globulin Ratio 1.2 (0.9-2); Alkaline Phosphatase 58.0 U/L (34-104); Anion Gap 7.0 (3-11); Bilirubin,Total 1.5 mg/dl (0.2-1.0); Blood Urea Nitrogen 9.0 mg/dl (6-23); Calcium 7.9 mg/dl (8.6-10.3); Carbon Dioxide 25.0 mmol/L (21-32); Chloride 103.0 mmol/L (98-107); Creatinine Clr Calc Pharmacy 118.7 ml/min; Globulin 2.5 gm/dl (2.5-4.0); Glucose 202.0 mg/dl (70-99(Fasting)); Magnesium 2.0 mg/dl (1.7-2.4); Potassium 3.7 mmol/L (3.5-5.1); Sodium 135.0 mmol/L (136-145); Total Protein 5.5 gm/dl (6.0-8.3)
[2025-01-22 11:22] LABS: ANTI-Xa, LMWH(Low Molecular Wt 0.24 IU/ML (< 0.10)
[2025-01-22 11:38] LABS: Hemoglobin A1C 8.2 % (4.5-5.6)
--- NOTE | 2025-01-22 12:19 | Pulmonary Consultation ---
Date of Consultation January 22, 2025 Assessment & Plan (1) Hypoventilation: (2) Hypoxemia: (3) Volume overload: Plan Patient has chronically low lung volumes and has evidence of acute hypervolemia leading to hypoxemia. Recommend continued use of incentive spirometer, out of bed to chair and judicious use of low-dose diuretics. Will discontinue IV fluids. I see no evidence of pneumonia at this time. Recommend outpatient sleep study to assess for VIOLET. VBG completed yesterday did not reveal any evidence of hypercapnia. Primary team ordered CT chest with PE protocol. Will follow-up the CT chest. Thank you for the consult. Please call with questions. History of Present Illness Reason for Consultation: hypoxia Attending Physician: Fabio Cevallos DO History of Present Illness 25-year-old female with a history of premature requiring prolonged ventilation, chronically elevated diaphragm, developmental delay and severe autism who presented to the hospital due to pyelonephritis. After resuscitation for sepsis she required supplemental oxygen. Chest x-ray completed this admission revealed low lung volumes and interstitial edema. Oxygenation has improved throughout the day with incentive spirometer and she is currently sitting up in a chair with her mother at her bedside. CT chest with PE protocol was ordered by the primary team to rule out pulmonary embolism. Ultrasound of lower extremities was negative for DVT. History from patient is limited given her developmental disorder. She does not appear to be in distress. Allergies Allergy/AdvReac Type Severity Reaction Status Date / Time Penicillins Allergy Severe ANAPHYLAXIS Verified 01/21/25 08:52 Sulfa (Sulfonamide Allergy Severe ANAPHYLAXIS Verified 01/21/25 08:52 Antibiotics) adhesive tape Allergy Intermediate Hives Unverified 01/21/25 08:52 Home Medications Medication Instructions Recorded Confirmed Type clonidine HCl 0.1 mg tablet 0.1 mg PO AMHS 06/15/20 01/21/25 History lamotrigine 150 mg tablet 300 mg PO QAM 06/15/20 01/21/25 History (Lamictal) metformin 500 mg tablet 500 mg PO HS 06/15/20 01/21/25 History lorazepam 1 mg tablet 1 mg PO DIRECTED Anxiety 12/16/23 01/21/25 History lumateperone 42 mg capsule 42 mg PO HS 12/16/23 01/21/25 History (Caplyta) mirtazapine 7.5 mg tablet 7.5 mg PO HS PRN menstrual cycle 12/16/23 01/21/25 History trazodone 150 mg tablet 150 mg PO HS 12/16/23 01/21/25 History Medical Marijuana 1 dose PO HS 03/06/24 01/21/25 History glipizide 5 mg tablet 5 mg PO DAILYBB 01/21/25 01/21/25 History melatonin 10 mg chewable tablet 20 mg PO HS 01/21/25 01/21/25 History naltrexone 50 mg tablet 25 mg PO QAM 01/21/25 01/21/25 History nystatin 100,000 unit/gram topical 1 applic topical BID 01/21/25 01/21/25 H istory cream Patient History Medical History Pervasive developmental disorder Impaired gait Family history of reaction to anesthesia History of anesthesia reaction H/O bronchopulmonary dysplasia Sleep disorder Insulin resistance Seasonal allergies Anxiety Communication impairment Depression Autism Needle phobia Surgical History S/P tonsillectomy Social History Smoking Status: Never smoker Second Hand Exposure: No; Do You Dip or Chew Tobacco: No; Hx Alcohol Use: No Hx Substance Use: No Preferred Language: B[place]ian Communication Ability: Impaired Communication Ability Comment: ID diagnosis Embedded Systems Developer Required: No Beliefs That Will Affect Care: None Current Living Situation: Family Feels Safe at Home: Yes Assistive Devices: Glasses Review of Systems Review of Systems: All systems reviewed & are unremarkable except as noted in HPI & below Physical Exam Physical Exam: Constitutional: Patient appears obese. No apparent distress. Eyes: Pupils are equal round and reactive to light. Conjunctivae are normal. Anicteric sclera. Ears nose, mouth and throat: No perioral cyanosis. Neck: Trachea is midline. Visual inspection is normal. Respiratory: Clear to auscultation bilaterally. No use of accessory muscles. No significant clubbing noted. Cardiovascular: Mild bilateral crackles with mild diminishment at the bases. Gastrointestinal: Normal bowel sounds, soft, nontender and nondistended. No hepatosplenomegaly noted. Musculoskeletal: No cyanosis. Patient is able to move all extremities. Skin: No rashes, warm dry and intact. Neurologic: No obvious focal neurological deficits seen. Psychiatric: Anxious and agitated at times. Results & Data Results & Data Vital Signs (Past 12 Hours) Vital Signs Temp Pulse Pulse Resp BP BP Pulse Ox 01/22/25 10:52 37.5 C 116 H 20 101/65 92 01/22/25 10:07 01/22/25 08:00 88 01/22/25 07:30 36.9 C 109 H 19 96/58 L 95 01/22/25 06:00 92/56 L 01/22/25 06:00 01/22/25 04:35 37.2 C 124 H 24 115/82 96 01/22/25 03:00 38.1 C H 119 H 20 127/84 93 01/22/25 01:48 94 H 95/65 L 95 01/22/25 00:48 95 H 18 91/62 L 96 Pulse Ox O2 Del Method O2 Del Method O2 Flow Rate O2 Flow Rate 01/22/25 10:52 Room Air 01/22/25 10:07 Oxymask 4 01/22/25 08:00 01/22/25 07:30 Oxymask 01/22/25 06:00 01/22/25 06:00 96 Oxymask 4 01/22/25 04:35 Oxymask 4 01/22/25 03:00 Oxymask 3 01/22/25 01:48 Oxymask 3 01/22/25 00:48 Oxymask 3 PG Care Time/CCT Total # of Minutes Spent Total Time Spent with Patient: Total time spent is greater than 50% in coordination of care (as documented) at patient's floor/unit and/or counseling patient: Coding Level of Care Code 39485 INT INP/OBS CARE 2/55MIN Diagnoses Hypoventilation R06.89 Hypoxemia R09.02 Volume overload E87.70
--- NOTE | 2025-01-22 12:26 | Hospitalist Progress Note ---
Date of Service January 22, 2025 Assessment & Plan (1) Intermittent explosive disorder: (2) Sleep disorder: (3) Anxiety: (4) Depression: (5) Autism: (6) Pyelonephritis: (7) Sepsis: Plan In summary, Carrol is a 25-year-old female with a history of autism who presents to the ED on 01/21/2025 with complaints of nausea/vomiting/fever/chills x 24 hours found to have pyelonephritis with sepsis and acute hypoxic respiratory failure Sepsis, Pyelonephritis Leukocytosis, fever, tachycardia, lactic acidosis and positive urinalysis all consistent with sepsis Trend lactic acid, trending down 2.6--> 3.0--> 1.7. blood cultures and urine cultures reviewed. Urine growing enterococcus faecalis with sensitivities pending, Blood cultures NGTD Currently on IV cefepime, history of penicillin allergy, CT A/P with left-sided pyelonephritis, no evidence of obstructing kidney stone Acute hypoxia: On 5 L currently, received Haldol and Ativan in ER for agitation, still hypoxic this am Chest x-ray was negative -d-dimer elevated, ON IV heparin for now -Consult Pulmonary, they feel low lung volumes, hypoventilation and fluid overload. Will give low dose lasix, Discontinue IVF -Venous duplex negative for DVT -Check CT PE Hx autism/explosive disorder/anxiety: Continue home meds including clonidine, Lamictal, lorazepam, naltrexone, trazodone Hx DM2: Hold glipizide/metformin, SSI/4 times daily BGM Patient has a needle phobia, may need to slowly reintroduce oral agents if not tolerant of insulin - Recheck A1c was 8.2 A total of 57 minutes was spent on chart review/reviewing diagnostic data/facilitating plan of care/discussion with consultants Full code DVT prophylaxis: SCDs Admission and Anticipated Discharge Date Admission Date: January 21, 2025 Subjective Chart and data reviewed. Pt seen at bedside with her mom(RESOLUTION ANALYST) and nursing team. She is on an oxymask at 5 l. Sat drops to 88% of. D dimer elevated. On IV heparin gtt. Venous duplex negative for DVT. On ABX for UTI and pyelonephritis. Pt can not give history. No emesis. No diarhea. Has a fever and chills. Review of Systems Review of Systems: Carrol cannot give hx Physical Exam Physical Exam: General- adult female in bed, Repeats "girlfriend" Head- atraumatic Eyes- PERRL, EOMI, anicteric ENT- oropharynx clear Neck- supple, no JVD, Lungs- clear to auscultation and percussion Heart- regular rhythm tach at 106; no murmur, no gallop, no rub appreciated Abdomen- normal bowel sounds, soft, nontender, no masses or hepatosplenomegaly, Positive flank pain left Extremities- no pretibial edema, no calf tenderness; peripheral pulses intact Neuro- alert, oriented, PERRL, EOMI; no focal deficits Skin- warm & diaphoretic Results & Data Results & Data Vital Signs (Past 12 Hours) Vital Signs Temp Pulse Pulse Resp BP BP Pulse Ox 01/22/25 10:52 37.5 C 116 H 20 101/65 92 01/22/25 10:07 01/22/25 08:00 88 01/22/25 07:30 36.9 C 109 H 19 96/58 L 95 01/22/25 06:00 92/56 L 01/22/25 06:00 01/22/25 04:35 37.2 C 124 H 24 115/82 96 01/22/25 03:00 38.1 C H 119 H 20 127/84 93 01/22/25 01:48 94 H 95/65 L 95 01/22/25 00:48 95 H 18 91/62 L 96 Pulse Ox O2 Del Method O2 Del Method O2 Flow Rate O2 Flow Rate 01/22/25 10:52 Room Air 01/22/25 10:07 Oxymask 4 01/22/25 08:00 01/22/25 07:30 Oxymask 01/22/25 06:00 01/22/25 06:00 96 Oxymask 4 01/22/25 04:35 Oxymask 4 01/22/25 03:00 Oxymask 3 01/22/25 01:48 Oxymask 3 01/22/25 00:48 Oxymask 3 Diagnostic Findings Laboratory Results WBC 11.05 K/ul (4.8-10.8) H 01/22/25 10:08 RBC 3.59 M/uL (4.20-5.40) L 01/22/25 10:08 Hgb 10.0 g/dl (12.0-16.0) L D 01/22/25 10:08 Hct 32.1 % (37.0-47.0) L 01/22/25 10:08 MCV 89.4 fL (80.0-100.0) 01/22/25 10:08 MCH 27.9 pg (25.0-34.0) 01/22/25 10:08 MCHC 31.2 g/dL (32.0-36.0) L 01/22/25 10:08 RDW Std Deviation 49.2 fL (36.4-46.3) H 01/22/25 10:08 RDW Coeff of [place] 15.0 % (11.5-14.5) H 01/22/25 10:08 Plt Count 196 K/uL (130-400) 01/22/25 10:08 MPV 10.6 fL (9.4-12.4) 01/22/25 10:08 Immature Gran % (Auto) 0.6 % 01/22/25 10:08 Neut % (Auto) 80.8 % 01/22/25 10:08 Lymph % (Auto) 9.8 % 01/22/25 10:08 [place] % (Auto) 8.6 % 01/22/25 10:08 Eos % (Auto) 0.1 % 01/22/25 10:08 Baso % (Auto) 0.1 % 01/22/25 10:08 Neut # (Auto) 8.93 K/uL (1.40-6.50) H 01/22/25 10:08 Lymph # (Auto) 1.08 K/uL (1.20-3.40) L 01/22/25 10:08 [place] # (Auto) 0.95 K/uL (0.11-0.59) H 01/22/25 10:08 Eos # (Auto) 0.01 K/uL (0.00-0.50) 01/22/25 10:08 Baso # (Auto) 0.01 K/uL (0.00-0.20) 01/22/25 10:08 Immature Gran # (Auto) 0.07 K/uL (0.01-0.20) 01/22/25 10:08 D-Dimer 1040 ug/L FEU (0-500) H* 01/21/25 15:03 Heparin Anti-Xa, LM Wt 0.24 IU/ML (< 0.10) 01/22/25 10:08 Heparin Anti-Xa, Unfract 0.18 IU/ml (0.3-0.7) L 01/22/25 00:53 VBG pH 7.37 (7.36-7.41) 01/21/25 21:45 VBG pCO2 41 mmHg (38-50) 01/21/25 21:45 VBG pO2 62 mmHg 01/21/25 21:45 VBG HCO3 24 mmol/L 01/21/25 21:45 VBG O2 Saturation 93.2 % 01/21/25 21:45 VBG Base Excess -1.5 mEq/L 01/21/25 21:45 Sodium 135 mmol/L (136-145) L 01/22/25 10:08 Potassium 3.7 mmol/L (3.5-5.1) D 01/22/25 10:08 Chloride 103 mmol/L (98-107) 01/22/25 10:08 Carbon Dioxide 25 mmol/L (21-32) 01/22/25 10:08 Anion Gap 7 (3-11) 01/22/25 10:08 BUN 9 mg/dl (6-23) 01/22/25 10:08 Creatinine 0.73 mg/dl (0.6-1.2) 01/22/25 10:08 Est Cr Clr Drug Dosing 118.7 ml/min 01/22/25 10:08 eGFR 117.70 01/22/25 10:08 BUN/Creatinine Ratio 12.3 (10-20) 01/22/25 10:08 Glucose 202 mg/dl (70-99(Fasting)) H 01/22/25 10:08 POC Glucose 241 mg/dl (70-99) H 01/21/25 17:40 Estimat Average Glucose 189 mg/dl 01/22/25 10:08 Hemoglobin A1c 8.2 % (4.5-5.6) H 01/22/25 10:08 Lactate 1.7 mmol/L (0.4-2.0) 01/21/25 21:04 Calcium 7.9 mg/dl (8.6-10.3) L 01/22/25 10:08 Magnesium 2.0 mg/dl (1.7-2.4) 01/22/25 10:08 Total Bilirubin 1.5 mg/dl (0.2-1.0) H 01/22/25 10:08 Direct Bilirubin 0.4 mg/dl (0-0.2) H 01/21/25 07:05 AST 31 U/L (13-39) 01/22/25 10:08 ALT 41 U/L (7-52) 01/22/25 10:08 Alkaline Phosphatase 58 U/L (34-104) 01/22/25 10:08 Ammonia 39.0 umol/L (18-72) 01/21/25 21:45 Troponin I High Sens 8.2 pg/ml (0-14) 01/21/25 07:05 Total Protein 5.5 gm/dl (6.0-8.3) L D 01/22/25 10:08 Albumin 3.0 gm/dl (3.4-5.0) L 01/22/25 10:08 Globulin 2.5 gm/dl (2.5-4.0) 01/22/25 10:08 Albumin/Globulin Ratio 1.2 (0.9-2) 01/22/25 10:08 Lipase 17 U/L (11-82) 01/21/25 07:05 Procalcitonin 1.39 ng/ml (0-0.5) H 01/21/25 07:05 HCG, Qual Negative (Negative) 01/21/25 07:05 Urine Color Dark Yellow 01/21/25 08:20 Urine Appearance Cloudy (Clear) A 01/21/25 08:20 Urine pH 5.5 (4.5-7.5) 01/21/25 08:20 Ur Specific [place] 1.041 (1.000-1.030) H 01/21/25 08:20 Urine Protein 3+ (Negative) H 01/21/25 08:20 Urine Glucose (UA) 1+ (Negative) H 01/21/25 08:20 Urine Ketones 1+ (Negative) H 01/21/25 08:20 Urine Blood 2+ (Negative) H 01/21/25 08:20 Urine Nitrite Positive (Negative) A 01/21/25 08:20 Urine Bilirubin Negative (Negative) 01/21/25 08:20 Urine Urobilinogen Negative (Negative) 01/21/25 08:20 Ur Leukocyte Esterase 2+ (Negative) H 01/21/25 08:20 Urine WBC (Auto) >50 /hpf (0-5) H 01/21/25 08:20 Urine RBC (Auto) 11-20 /hpf (0-2) H 01/21/25 08:20 U Hyaline Cast (Auto) 0-2 /lpf (0-2) 01/21/25 08:20 U Epithel Cells (Auto) 0-2 /hpf (0-2) 01/21/25 08:20 Urine Bacteria (Auto) 4+ (None Seen) H 01/21/25 08:20 Urine Comment 01/21/25 08:20 Adenovirus (PCR) Not Detected (NotDetected) 01/21/25 06:05 B. pertussis DNA (PCR) Not Detected (NotDetected) 01/21/25 06:05 B.parapertussis DNA PCR Not Detected (NotDetected) 01/21/25 06:05 C. pneumoniae DNA (PCR) Not Detected (NotDetected) 01/21/25 06:05 Coronavirus OC43 (PCR) Not Detected (NotDetected) 01/21/25 06:05 Coronavirus HKU1 (PCR) Not Detected (NotDetected) 01/21/25 06:05 Coronavirus 229E (PCR) Not Detected (NotDetected) 01/21/25 06:05 SARS-CoV-2 (PCR) Not Detected (NotDetected) 01/21/25 06:05 Coronavirus NL63 (PCR) Not Detected (NotDetected) 01/21/25 06:05 Human Metapneumovir PCR Not Detected (NotDetected) 01/21/25 06:05 Influenza Type A (PCR) Not Detected (NotDetected) 01/21/25 06:05 Influenza Type B (PCR) Not Detected (NotDetected) 01/21/25 06:05 M. pneumoniae (PCR) Not Detected (NotDetected) 01/21/25 06:05 Parainfluenza 1 (PCR) Not Detected (NotDetected) 01/21/25 06:05 Parainfluenza 2 (PCR) Not Detected (NotDetected) 01/21/25 06:05 Parainfluenza 3 (PCR) Not Detected (NotDetected) 01/21/25 06:05 Parainfluenza 4 (PCR) Not Detected (NotDetected) 01/21/25 06:05 RSV (PCR) Not Detected (NotDetected) 01/21/25 06:05 Entero/Rhino (PCR) Not Detected (NotDetected) 01/21/25 06:05 Impressions KUB X-Ray 01/21/25 05:46 EXAM: XR KUB/Abdomen 1 view CLINICAL HISTORY: fever, n/v TECHNIQUE: X-ray images of the abdomen were obtained in frontal positions. COMPARISON: CT study dated 06/17/2017 reviewed FINDINGS: Gas Pattern: Scattered gas distended bowel loops, non-specific pattern No evidence of bowel obstruction. Soft Tissues: Soft tissues of the abdomen appear normal without evidence of masses or calcifications. Liver, spleen, and kidneys are of normal size and position. IMPRESSION: 1. Scattered gas distended bowel loops, non-specific pattern 2. No evidence of bowel obstruction. Electronically signed by Paul Pace 01-21-2025 07:00 AM Abdomen/Pelvis CT 01/21/25 07:[address] WITH IV CONTRAST CT DOSE: 1597.56 mGy.cm HISTORY: Acute left-sided flank pain L flank pain, vomiting TECHNIQUE: Multiaxial CT images of the abdomen and pelvis were performed following the IV administration of 94 cc of Optiray, A dose lowering technique was utilized adhering to the principles of ALARA. COMPARISON STUDY: 06/17/2017 FINDINGS: Cystic changes in the lung bases redemonstrated. No pneumatosis or pneumoperitoneum. The spleen is enlarged measuring 14 cm. Hepatic steatosis. The liver measures 23 cm in length. Patency of the hepatic and portal veins. Unremarkable pancreas and adrenal glands. Unremarkable right kidney. There is asymmetric left-sided perinephric stranding with areas of heterogeneous left renal enhancement and urothelial thickening. No urolithiasis or hydronephrosis. Mild urinary bladder wall thickening with partial distention. Unremarkable uterus. Bilateral ovarian follicles with 3 cm right ovarian cyst. Aorta and IVC are unremarkable. No bowel obstruction or bowel wall thickening. Normal appendix. Unremarkable osseous structures. IMPRESSION: 1. Findings suggestive of cystitis with ascending left-sided infection and left- sided pyelonephritis. 2. No urolithiasis or hydronephrosis. 3. Hepatosplenomegaly with hepatic steatosis. 4. 3 cm right ovarian cyst. 5. Cystic pulmonary disease versus emphysema redemonstrated. ACT 112: Negative or not required by law. The above report was generated using voice recognition software. It may contain grammatical, syntax or spelling errors. Electronically signed by: Leo Amezcua M.D. 01/21/2025 8:18 AM Chest X-Ray 01/21/25 15:06 XR chest 1V portable HISTORY: 25 years-old Female increasing o2 needs acute hypoxia COMPARISON: 01/21/2025 TECHNIQUE: AP view of the chest FINDINGS: Cardiomediastinal and hilar silhouettes are unchanged. Bronchovascular crowding with interstitial coarsening. Hypoinflation. No pneumothorax, large pleural effusion or overt pulmonary edema. Bones appear grossly intact. IMPRESSION: Limited study secondary to hypoinflation with bronchovascular crowding and probable atelectasis. ACT 112: Negative or not required by law. The above report was generated using voice recognition software. It may contain grammatical, syntax or spelling errors. Electronically signed by: Leo Amezcua M.D. 01/21/2025 3:31 PM Venous Doppler Study 01/21/25 16:14 Clinical History: Elevated d-dimer Technique: Venous ultrasound evaluation was performed utilizing grayscale, color Doppler and wave form evaluation. Images were also obtained with and without compression Findings: The bilateral common femoral, superficial femoral, popliteal, and visualized calf veins demonstrate normal anechoic lumens with full compressibility. Normal flow is seen on color Doppler images. Expected waveforms were produced with augmentation maneuvers Impression: No evidence of deep venous thrombosis ACT 112: Positive. There are findings on this exam that require communication between the performing entity and the patient following Patient Test Result Information Act ([place] ACT 112) guidelines. Electronically signed by Lorenzo Hallman 01-21-2025 6:34 PM
[2025-01-22 12:45] LABS: ANTI-Xa, UFH(UnfractionatedHep 0.24 IU/ml (0.3-0.7)
[2025-01-22] MEDS: OPTIRAY 320 125ml IV ONE (13:59)
[2025-01-22] MEDS ORDERED: VANCOMYCIN CONSULT ACTIVE PRN (14:24)
--- NOTE | 2025-01-22 14:44 | CT Scan Report ---
CT ANGIOGRAM OF THE CHEST CLINICAL HISTORY: Chest pain and shortness of breath. Evaluate for pulmonary embolus. COMPARISON STUDY: Chest radiograph January 21, 2025 at 3:21 PM. TECHNIQUE: Following the IV administration of 120 cc of Optiray 320, CT angiogram of the chest was pe rformed from the upper abdomen to the thoracic inlet utilizing the pulmonary embolus protocol. Images are reviewed in the axial, sagittal, and coronal planes. 3-D MIPS images are created and assessed. I V contrast was administered without complication. A dose lowering technique was utilized adhering to the principles of ALARA. CT DOSE: 636.87 mGy.cm FINDINGS: No central pulmonary emboli are identified. Evaluation of the remainder of the pulmonary ar teries is significantly compromised given respiratory motion. There is no thoracic aortic dissection. Borderline cardiomegaly is noted. There is no pericardial effusion. Lungs are suboptimally assessed due to respiratory motion. There are groundglass opacities within the lungs with apparent areas of mo saic attenuation. Scattered small lucencies throughout the lungs are noted. There is no pneumothorax or pleural effusion. Hepatic steatosis and hepatosplenomegaly are better depicted on CT of January 21. IMPRESSION: 1. Exam significantly compromised by respiratory motion. No central pulmonary emboli. Evaluation of t he remainder of the pulmonary arteries is nondiagnostic. 2. Groundglass opacities within the lungs which may represent an infectious process or atelectasis. N o consolidation. 3. Numerous small lucencies throughout the lungs which could represent cystic lung disease or emphyse ma. ACT 112: Negative or not required by law. Electronically signed by: Marito Moreno M.D. 01/22/2025 2:43 PM
--- NOTE | 2025-01-22 15:56 | Pharmacy Report ---
Pharmacy PK ABX Note - Date of Service January 22, 2025 - Assessment and Plan Assessment 01/23: Reviewed vancomycin level, predicting therapeutic AUC/LIBRA, continue current vancomycin regimen. WBC downtrending, Tmax 24 hours 38.8, serum creatinine stable. 25 year old F receiving vancomycin for treatment of pyelonephritis. Pertinent microbiologic data includes: urine culture growing pansensitive E. Faecalis, Blood cultures NG x48 hours. Day # 2 of antimicrobial therapy. Plan Vancomycin * Loading dose: 1750 mg IV x 1 * Maintenance dose: 1000 mg IV every 8 hours * Regimen is predicted to achieve target AUC/LIBRA of 400-600 mg/L.hr * Trough level ordered for: 01/26/25 Pharmacy will continue to follow and will adjust dose/frequency as necessary. Thank you. Pharmacy has transitioned to AUC monitoring for vancomycin. AUC/LIBRA is the preferred PK/PD target and is associated with decreased risk of nephrotoxicity compared to traditional trough targets.
[2025-01-22] MEDS: VANCOMYCIN HCL 1,750 MG in SODIUM CHLORIDE 0.9% 500 ML IV ONE (16:00)
[2025-01-22] MEDS: PROMETHAZINE 6.25 MG/50.25 ML BAG IV STA (21:06)
[2025-01-23] MEDS: VANCOMYCIN HCL 1,000 MG/270 ML BAG IV SCH (00:38)
[2025-01-23 08:15] LABS: Hematocrit (blood only) 34.6 % (37.0-47.0); Hemoglobin 10.9 g/dl (12.0-16.0); Mean Corpuscular Hemoglobin 28.0 pg (25.0-34.0); Mean Corpuscular Volume 88.9 fL (80.0-100.0); Platelet Count 198 K/uL (130-400); RDW Standard Deviation 48.7 fL (36.4-46.3); Red Blood Count 3.89 M/uL (4.20-5.40); White Blood Count 7.53 K/ul (4.8-10.8)
[2025-01-23 08:32] LABS: Anion Gap 8.0 (3-11); Blood Urea Nitrogen 7.0 mg/dl (6-23); Calcium 8.1 mg/dl (8.6-10.3); Carbon Dioxide 25.0 mmol/L (21-32); Chloride 103.0 mmol/L (98-107); Glucose 172.0 mg/dl (70-99(Fasting)); Potassium 3.8 mmol/L (3.5-5.1); Sodium 136.0 mmol/L (136-145)
[2025-01-23 09:56] LABS: Creatinine Clr Calc Pharmacy 131.3 ml/min
[2025-01-23] MEDS: CETIRIZINE HCL 10 MG TABLET PO ONE (11:00)
[2025-01-23] MEDS: PROMETHAZINE 6.25 MG/50.25 ML BAG IV PRN (12:20)
--- NOTE | 2025-01-23 16:08 | Hospitalist Progress Note ---
Date of Service January 23, 2025 Assessment & Plan (1) Intermittent explosive disorder: (2) Sleep disorder: (3) Anxiety: (4) Depression: (5) Autism: (6) Pyelonephritis: (7) Sepsis: Plan Ms. Spangler is a 25-year-old female with a history of autism who presents to the ED on 01/21/2025 with complaints of nausea/vomiting/fever/chills x 24 hours found to have pyelonephritis with sepsis and acute hypoxic respiratory failure. Urine culture with E faecalis susceptible to vanc and flouroquinolones Possible discharge tomorrow if afebrile for > 24 hours #Sepsis 2/2 acute pyelonephritis Leukocytosis, fever, tachycardia, lactic acidosis and positive urinalysis all consistent with sepsis Trend lactic acid, trending down 2.6--> 3.0--> 1.7. blood cultures and urine cultures reviewed. Urine growing enterococcus faecalis with sensitivities pending, Blood cultures NGTD history of penicillin allergy, CT A/P with left-sided pyelonephritis, no evidence of obstructing kidney stone Continue vancomycin Transition to PO ciprofloxacin for total of 10 days if afebrile in am 3Acute hypoxia: resolved On 5 L currently, received Haldol and Ativan in ER for agitation, still hypoxic this am Chest x-ray was negative -d-dimer elevated, ON IV heparin for now -Consult Pulmonary, they feel low lung volumes, hypoventilation and fluid overload. Will give low dose lasix, Discontinue IVF -Venous duplex negative for DVT -CT PE negative for DVT #autism/explosive disorder/anxiety: Continue home meds including clonidine, Lamictal, lorazepam, naltrexone, trazodone #DM2: Hold glipizide/metformin, SSI/4 times daily BGM Patient has a needle phobia, may need to slowly reintroduce oral agents if not tolerant of insulin - Recheck A1c was 8.2 A total of 65 minutes was spent on chart review/reviewing diagnostic data/facilitating plan of care/discussion with consultants Full code DVT prophylaxis: SCDs Admission and Anticipated Discharge Date Admission Date: January 21, 2025 Subjective Reports of headache and some abdominal pain, but overall much improvement most history gathered from mother at bedside cough ongoing, perhaps related to allergies +/- gerd states mother overall subjective improvement Physical Exam Constitutional: WD/WN, vitals as above Respiratory: normal respiratory effort, lungs clear to auscultation Cardiovascular: RRR, no murmur, no edema Gastrointestinal (Abdomen): mild LLQ/suprapubic discomfort Results & Data Results & Data Vital Signs (Past 12 Hours) Vital Signs Temp Pulse Pulse Resp BP Pulse Ox O2 Del Method 01/23/25 08:00 99 H 01/23/25 07:38 37.0 C 89 20 114/78 96 Room Air Laboratory Results Short CBC 01/23/25 Range/Units 07:55 WBC 7.53 (4.8-10.8) K/ul Hgb 10.9 L (12.0-16.0) g/dl Hct 34.6 L (37.0-47.0) % Plt Count 198 (130-400) K/uL BMP 01/23/25 07:55 Sodium 136 Potassium 3.8 Chloride 103 Carbon Dioxide 25 BUN 7 Creatinine 0.66 Glucose 172 H Calcium 8.1 L Medications Administered Home Medications Medication Instructions Recorded Confirmed Last Taken clonidine HCl 0.1 mg tablet 0.1 mg PO AMHS 06/15/20 01/21/25 01/20/25 lamotrigine 150 mg tablet 300 mg PO QA 06/15/20 01/21/25 01/20/25 (Lamictal) metformin 500 mg tablet 500 mg PO HS 06/15/20 01/21/25 01/20/25 lorazepam 1 mg tablet 1 mg PO DIRECTED Anxiety 12/16/23 01/21/25 01/20/25 lumateperone 42 mg capsule 42 mg PO HS 12/16/23 01/21/25 01/20/25 (Caplyta) mirtazapine 7.5 mg tablet 7.5 mg PO HS PRN menstrual cycle 12/16/23 01/21/25 02/29/24 trazodone 150 mg tablet 150 mg PO HS 12/16/23 01/21/25 01/20/25 Medical Marijuana 1 dose PO HS 03/06/24 01/21/25 01/20/25 glipizide 5 mg tablet 5 mg PO DAILYBB 01/21/25 01/21/25 01/20/25 melatonin 10 mg chewable tablet 20 mg PO HS 01/21/25 01/21/25 01/20/25 naltrexone 50 mg tablet 25 mg PO QAM 01/21/25 01/21/25 01/20/25 nystatin 100,000 unit/gram topical 1 applic topical BID 01/21/25 01/21/25 01/20/25 cream Active Medications Generic Name Dose Route Start Last Admin Trade Name Freq PRN Reason Stop Dose Admin Acetaminophen 650 mg 01/21/25 11:39 01/23/25 12:20 Acetaminophen 325 Mg Tab PO 02/20/25 11:38 650 mg Q4H PRN Administration Pain or Fever Clonidine HCl 0.1 mg 01/21/25 21:00 01/21/25 21:14 Clonidine Hcl 0.1 Mg Tab PO 02/20/25 20:59 Not Given AMHS CECY Vancomycin HCl 1,000 mg in 270 mls @ 200 mls/hr 01/23/25 00:00 01/23/25 10:15 Vancomycin Hcl IV 01/30/25 00:00 Infused Q8H CECY Infusion Promethazine HCl 6.25 mg in 50.25 mls @ 201 mls/hr 01/22/25 20:53 01/23/25 12:35 Phenergan IV 02/21/25 20:52 Infused Q6H PRN Infusion Nausea And Vomiting Ketorolac Tromethamine 15 mg 01/21/25 11:54 01/23/25 04:27 Ketorolac Tromethamine 15 Mg/Ml Vial IV 01/26/25 11:59 15 mg Q6H PRN Administration FEVER OR PAIN Lamotrigine 300 mg 01/22/25 09:00 01/23/25 08:49 Lamotrigine 100 Mg Tab PO 02/21/25 08:59 300 mg QAM CCEY Administration Lorazepam 1 mg 01/21/25 21:00 01/22/25 21:02 Lorazepam 1 Mg Tab PO 02/20/25 20:59 1 mg HS CECY Administration Lorazepam 1 mg 01/21/25 11:41 01/22/25 10:15 Lorazepam 1 Mg Tab PO 02/20/25 11:40 1 mg BID PRN Administration Anxiety Naltrexone HCl 25 mg 01/22/25 09:00 01/23/25 08:47 Naltrexone Hcl 50 Mg Tab PO 02/21/25 08:59 25 mg QAM CECY Administration Nystatin 1 appln 01/21/25 21:00 01/23/25 08:50 Nystatin Cr 15 Gm Tube EXT 02/20/25 20:59 Not Given BID CECY Trazodone HCl 150 mg 01/21/25 21:00 01/22/25 21:02 Trazodone Hcl 50 Mg Tab PO 02/20/25 20:59 150 mg HS CECY Administration
[2025-01-23] MEDS: VANCOMYCIN LEVEL ONE (16:19)
[2025-01-23] MEDS: LUMATEPERONE TOSYLATE 42 MG PO SCH (20:52)
[2025-01-23] MEDS: MELATONIN 3 MG TAB PO SCH (20:53)
[2025-01-24 03:53] VITALS: RESP 21
[2025-01-24 07:33] LABS: Hematocrit (blood only) 34.2 % (37.0-47.0); Hemoglobin 11.0 g/dl (12.0-16.0); Mean Corpuscular Hemoglobin 28.6 pg (25.0-34.0); Mean Corpuscular Volume 89.1 fL (80.0-100.0); Platelet Count 219 K/uL (130-400); RDW Standard Deviation 48.7 fL (36.4-46.3); Red Blood Count 3.84 M/uL (4.20-5.40); White Blood Count 5.42 K/ul (4.8-10.8)
[2025-01-24 07:42] VITALS: BP 121/80; TEMP 99.7; O2SAT 93
[2025-01-24 07:48] LABS: Anion Gap 7.0 (3-11); Blood Urea Nitrogen 4.0 mg/dl (6-23); Calcium 8.5 mg/dl (8.6-10.3); Carbon Dioxide 27.0 mmol/L (21-32); Chloride 104.0 mmol/L (98-107); Creatinine Clr Calc Pharmacy 164.9 ml/min; Glucose 197.0 mg/dl (70-99(Fasting)); Magnesium 1.9 mg/dl (1.7-2.4); Potassium 4.3 mmol/L (3.5-5.1); Sodium 138.0 mmol/L (136-145)
--- NOTE | 2025-01-24 09:40 | Discharge Summary ---
Discharge Summary Date of Service January 24, 2025 Principal Dx & Hospital Course #1 = Principal Diagnosis (1) Intermittent explosive disorder: (2) Sleep disorder: (3) Anxiety: (4) Depression: (5) Autism: (6) Pyelonephritis: (7) Sepsis: Plan Ms. Spangler is a 25-year-old female with a history of autism who presents to the ED on 01/21/2025 with complaints of nausea/vomiting/fever/chills x 24 hours found to have pyelonephritis with sepsis and acute hypoxic respiratory failure. Urine culture with E faecalis susceptible to vanc and flouroquinolones . On day of discharge, patient passing bowel movements, eating well, and close to baseline per mother. Patient reports dry cough, associated with post nasal drip, but headache is resolved. Discussed plan to continue 7 more days of ciprofloxacin for pyelonephritis. Prescribed bentyl and zofran prn to aid in compliance with antibiotic given concern for gi upset. #Sepsis 2/2 acute pyelonephritis Leukocytosis, fever, tachycardia, lactic acidosis and positive urinalysis all consistent with sepsis Trend lactic acid, trending down 2.6--> 3.0--> 1.7. blood cultures and urine cultures reviewed. Urine growing enterococcus faecalis with sensitivities pending, Blood cultures NGTD history of penicillin allergy, CT A/P with left-sided pyelonephritis, no evidence of obstructing kidney stone Transition to PO ciprofloxacin for total of 10 days #Acute hypoxia: resolved On 5 L currently, received Haldol and Ativan in ER for agitation, still hypoxic this am Chest x-ray was negative -d-dimer elevated, ON IV heparin for now -Consult Pulmonary, they feel low lung volumes, hypoventilation and fluid overload. Will give low dose lasix, Discontinue IVF -Venous duplex negative for DVT -CT PE negative for DVT #autism/explosive disorder/anxiety: Continue home meds including clonidine, Lamictal, lorazepam, naltrexone, trazodone #DM2: Hold glipizide/metformin, SSI/4 times daily BGM Patient has a needle phobia, may need to slowly reintroduce oral agents if not tolerant of insulin - Recheck A1c was 8.2 Notes For Next Care Provider Recommend sleep study to assess for ketty Recommend op establishment with urology given unilateral pyelonephritis Medication Changes From Visit Ciprofloxacin 500mg bid Bentyl 20mg q 6h prn stomach cramps/pain Zofran 4mg q8h prn nausea Admission HPI Per Admitting Provider The patient is a 25-year-old female with a past medical history of explosive disorder, developmental disorder, autism spectrum disorder level 3, IgG deficiency, DM2, anxiety who presents to the ED on 01/21/2025 after she was brought in from home with her mother for concern of left flank pain, vomiting, and chills at home x 24 hours. The patient's mother is at bedside and reports that her symptoms started last night. The patient began complaining of pain and she believed this was originally from gas. After the pain did not improve, the patient had chills overnight and had about 5 episodes of vomiting this morning. She was brought to the ER after this. When the patient arrived to the ED, the patient was febrile at 38.1 with elevated heart rates in the 160s. Her blood pressure remained stable. On exam, the patient had received Versed and Haldol, she is sedated but arousable. At this time, requiring 5 L of oxygen due to sedation. Blood pressures were slightly low in the 90s. But heart rate has now improved in the 80s. The patient does not appear in any apparent distress. Labs are remarkable for WBC 18, anion gap 12, glucose 278, magnesium 1.4, total bili 1.2, AST 47, ALT 75, procalcitonin 1.39, lactic acid 5.4 Urinalysis grossly positive Respiratory viral panel negative Chest x-ray negative KUB showed scattered gas distended bowel loops with no evidence of bowel obstruction Abdomen/pelvis CT showed: 1. Findings suggestive of cystitis with ascending left-sided infection and left- sided pyelonephritis. 2. No urolithiasis or hydronephrosis. 3. Hepatosplenomegaly with hepatic steatosis. 4. 3 cm right ovarian cyst. 5. Cystic pulmonary disease versus emphysema redemonstrated. The patient received IV cefepime and IV fluids in the ER. She will be admitted for urosepsis Admission Exam Per Admitting Provider Constitutional: WD/WN, vitals as above not in distress Eyes: PERRL, conjunctivae normal, anicteric sclerae ENMT: external ear and nose normal, oropharynx normal Neck: trachea midline, no thyromegaly Respiratory: normal respiratory effort, lungs clear to auscultation Cardiovascular: RRR, no murmur, no edema Gastrointestinal (Abdomen): normal bowel sounds, soft, nontender, no hepatosplenomegaly (Left-sided abdominal tenderness, no guarding) Musculoskeletal: no cyanosis or clubbing, extremities motor strength 5/5 Skin: no rashes, warm and dry Neurologic: PERRL, EOMI, accommodation nl, no face palsy, no dysarthria Lymphatic: no cervical or axillary lymphadenopathy Discharge Exam Constitutional sitting in bedside chair, calm, no distress Respiratory normal respiratory effort, lungs clear to auscultation Cardiovascular tachycardic, regular no MRG Gastrointestinal (Abdomen) normal bowel sounds, soft, nontender, no hepatosplenomegaly Updated Medication List Medication Instructions Recorded Confirmed Type clonidine HCl 0.1 mg tablet 0.1 mg PO AMHS 06/15/20 01/21/25 History lamotrigine 150 mg tablet 300 mg PO QAM 06/15/20 01/21/25 History (Lamictal) metformin 500 mg tablet 500 mg PO HS 06/15/20 01/21/25 History lorazepam 1 mg tablet 1 mg PO DIRECTED Anxiety 12/16/23 01/21/25 History lumateperone 42 mg capsule 42 mg PO HS 12/16/23 01/21/25 History (Caplyta) mirtazapine 7.5 mg tablet 7.5 mg PO HS PRN menstrual cycle 12/16/23 01/21/25 History trazodone 150 mg tablet 150 mg PO HS 12/16/23 01/21/25 History Medical Marijuana 1 dose PO HS 03/06/24 01/21/25 History glipizide 5 mg tablet 5 mg PO DAILYBB 01/21/25 01/21/25 History melatonin 10 mg chewable tablet 20 mg PO HS 01/21/25 01/21/25 History naltrexone 50 mg tablet 25 mg PO QAM 01/21/25 01/21/25 History nystatin 100,000 unit/gram topical 1 applic topical BID 01/21/25 01/21/25 History cream ciprofloxacin HCl 500 mg tablet 500 mg PO BID #14 tabs 01/24/25 Rx dicyclomine 20 mg tablet 20 mg PO QID PRN abdominal pain 01/24/25 Rx #14 tabs ondansetron HCl 4 mg tablet 4 mg PO Q8H 4 days #12 tabs 01/24/25 Rx Hospital Stay Data Consultations 01/21/25 08:59 ED Decision to Admit Stat 01/22/25 11:15 Consult Pulmonology Routine Diagnostic Imagining Performed 01/21/25 07:13 CT Abd and Pelvis [CT abd pelvis IV con only] Stat 01/21/25 16:14 US venous duplex leg [US venous doppler LE BI] Routine 01/22/25 12:56 CT for pulmonary embolism PE [CT angio chest PE protocol] Urgent Pending Results Patient Have Any Pending Studies at Discharge: No Discharge Instructions Given to Patient (Per Discharging Provider) You were admitted for abdominal pain and found to have sepsis due to pyelonephritis, or infection of the kidney. You were treated with IV antibiotics and noted improvement. Your cultures returned back and were susceptible to the following antibiotic: -Ciprofloxacin 500mg two times a day, for 7 more days (your first dose starts this evening) You will be sent with the following as well_ Bentyl 20mg every 6 hours as needed for abdominal cramps Zofran 4mg every 8 hours as needed for nausea Please complete the antibiotic course above Please follow up with your PCP It is recommended to consider Urological consultation as an outpatient Recommend outpatient sleep study to assess for obstructive sleep apnea Total Time Total Time Spent Total Time Spent (In Minutes): 45
[2025-01-24 09:59] VITALS: PULSE 109
[2025-01-26] MEDS ORDERED: VANCOMYCIN LEVEL ONE (07:00)
== END 2025-01-24 10:29 | disposition home or self-care (01) | DRG 871 ==
LOC: ED 05:32 → SUATTDRO 09:14 → EDINP 09:14 → 2S 18:50